=== PATIENT | male | born 1945 | race Caucasian/White ===

== ENCOUNTER 2016-07-29 09:44 | Inpatient (IN) ==
--- NOTE | 2016-07-28 20:49 | Discharge Summary ---
<Patricia Harkins - Last Filed: 07/28/16 21:26> Date of Encounter: 07/28/16 - Discharge Diagnosis (1) Arthritis of knee, left Priority: Primary Status: Acute (2) HTN (hypertension) Priority: Secondary Status: Acute Qualifiers: Hypertension type: essential hypertension Qualified Code(s): I10 - Essential (primary) hypertension (3) DMII (diabetes mellitus, type 2) Priority: Secondary Status: Chronic Qualifiers: Diabetes mellitus complication status: with unspecified complications Diabetes mellitus jail insulin use: unspecified jail insulin use status Qualified Code(s): E11.8 - Type 2 diabetes mellitus with unspecified complications - Discharge Medications Home Medications: Aspirin Enteric Coated [Aspirin EC] 325 mg PO DAILY #21 tablet.dr 07/28/16 [Rx] OxyCODONE Immed Rel [Roxicodone 5 MG] 5 - 10 mg PO Q6HR PRN #40 tablet 07/28/16 [Rx] Albuterol Sulfate [Ventolin Hfa] 2 puff IH Q4H PRN 07/29/16 [History] Atorvastatin [Lipitor] 40 mg PO HS 07/29/16 [History] Budesonide/Formoterol 160/4.5 [Symbicort 160/4.5] 2 puff IH BIDR 07/29/16 [ History] Cholecalciferol (D-3) [Vitamin D] 1,000 unit PO DAILY 07/29/16 [History] Diclofenac Sodium [Voltaren] 75 mg PO DAILY 07/29/16 [History] Duloxetine HCl [Cymbalta] 60 mg PO DAILY 07/29/16 [History] Dutasteride [Avodart] 0.5 mg PO DAILY 07/29/16 [History] Fish Oil/Dha/Epa [Fish Oil 1,200 mg Fish Oil] 1 each PO DAILY 07/29/16 [History] Gabapentin [Neurontin] 600 mg PO BID 07/29/16 [History] Jacy Root 550 mg PO DAILY 07/29/16 [History] Glucosamine HCl 1,500 mg PO DAILY 07/29/16 [History] Lisinopril/Hydrochlorothiazide [Lisinopril-Hctz 20-25 mg Tab] 1 tab PO DAILY 11/09 [History] Loratadine [Claritin] 10 mg PO DAILY 07/29/16 [History] Metformin HCl [Glucophage] 1,000 mg PO BID 07/29/16 [History] Montelukast [Singulair] 10 mg PO HS 07/29/16 [History] Multivitamin [Multi-Day Vitamins] 1 each PO DAILY 07/29/16 [History] Omeprazole [PriLOSEC] 40 mg PO DAILY 07/29/16 [History] Turmeric Root Extract [Turmeric] 500 mg PO DAILY 07/29/16 [History] Zinc [Zinc Chelated] 50 mg PO DAILY 07/29/16 [History] Allergies/Adverse Reactions: Allergies No Known Allergies Allergy (Verified 07/29/16 11:09) Primary care physician: Sue Nagel - Patient Status Disposition: Home, Self-Care Condition: Good - Discharge Instructions Follow Up With: Jt Crow MD [Partnered Physician] - 08/27/16 9:20 am Patricia Harkins PAC [Physician Steam Generating Powerplant Mechanic] - 08/08/16 9:30 am Patricia Melendrez DO [Primary Care Provider] - - Hospital Course Hospital course: Mr. Meredith is a 70 year old male - Time Spent with Patient Total time spent providing and/or coordinating discharge services: <tJ Crow - Last Filed: 07/31/16 06:42> Date of Encounter: 07/31/16 Time of Encounter: 06:42 - Discharge Diagnosis (1) Obesity (BMI 30.0-34.9) Priority: Secondary Status: Chronic (2) Arthritis of knee, left Priority: Primary Status: Acute (3) HTN (hypertension) Priority: Secondary Status: Acute Qualifiers: Hypertension type: essential hypertension Qualified Code(s): I10 - Essential (primary) hypertension (4) DMII (diabetes mellitus, type 2) Priority: Secondary Status: Chronic Qualifiers: Diabetes mellitus complication status: with unspecified complications Diabetes mellitus jail insulin use: unspecified community recreation programmer insulin use status Qualified Code(s): E11.8 - Type 2 diabetes mellitus with unspecified complications - Patient Status Functional capacity at discharge: uses cane/walker Overall status at discharge: patient is progressing back to baseline - Hospital Course Hospital course: Mr. Meredith is a 70 year old male The patient had an uneventful postoperative course. They received antibiotics and physical therapy and were discharged in stable condition. There will follow -up in the office in 2 weeks. Aspirin DVT prophylaxis - Time Spent with Patient Total time spent providing and/or coordinating discharge services:
--- NOTE | 2016-07-29 09:55 | History & Physical Report ---
Date of Encounter: 07/29/16 Time of Encounter: 09:55 24 Hour HP Update - Instructions Instructions: If the History and Physical is less than 30 days old and was completed prior to A.M. admission and or procedure and has NOT been updated on calendar day of procedure please complete this update prior to performing procedure. - Update Patient reports changes in Medical Condition: No Changes in assessment/condition: No Changes in Medication: No Preop tests/diagnostics Reviewed: Yes Surgery Remains Indicated: Yes Consent for Planned Operative Procedure(s) Verified: Yes - Pre-Operative Checklist Preoperative Checklist Indicated: No Prophylactic Antibiotic Ordered: Yes Is VTE Prophylaxis Indicated?: Yes
[2016-07-29] MEDS ORDERED: CeFAZolin Pre 3,000 MG/100 ML 3,000 MG/100 ML BAG IVPB ONE (10:01)
[2016-07-29] MEDS ORDERED: Ringers Solution, Lactated 1,000 ML IVC SCH ×2 (10:15→14:26)
[2016-07-29] MEDS ORDERED: CeFAZolin Pre 2,000 MG/100 ML 2,000 MG/100 ML BAG IVPB ONE (10:19)
[2016-07-29] MEDS ORDERED: *HR* HYDROmorphone (PF) 1 MG/ML SYRINGE IVP PRN (10:25)
[2016-07-29] MEDS ORDERED: *HR* Labetalol 100 MG/20 ML MDV IVP PRN (10:25)
[2016-07-29] MEDS ORDERED: Ondansetron 4 MG/2 ML VIAL IVP ONE (10:25)
[2016-07-29] MEDS ORDERED: *HR* Midazolam HCl 2 MG/2 ML VIAL ONE (10:28)
[2016-07-29] MEDS ORDERED: *HR* Propofol 200 MG/20 ML VIAL IVP ONE (10:28)
[2016-07-29] MEDS ORDERED: *HR* FentaNYL (PF) 100 MCG/2 ML VIAL ONE (10:28)
[2016-07-29] MEDS ORDERED: Lidocaine -MPF 2% 2 ML VIAL ONE (10:33)
[2016-07-29] MEDS ORDERED: Dexamethasone 4 MG/ML VIAL ONE (10:34)
[2016-07-29] MEDS ORDERED: Ondansetron 4 MG/2 ML VIAL ONE (10:34)
[2016-07-29] MEDS ORDERED: Famotidine 20 MG/2 ML VIAL IVP ONE (10:35)
--- NOTE | 2016-07-29 10:41 | Anesthesia Evaluation PreOp ---
Date of Encounter: 07/29/16 Time of Encounter: 10:40 - Past History Planned Operation: Left TKA Cardiac History: HTN, Hyperlipidemia Pulmonary History: Asthma ENGINEER BOOSTER AND EXHAUSTER History: Denies Any Significant HX Other Medical History: Diabetes Type II (Accu check 121) Anesthesia History: No Prior Anesthetic Complications Alcohol Use: none Drug use: none Medications and Allergies Atorvastatin Calcium [Lipitor] 20 mg PO 04/28/16 [History] Budesonide/Formoterol 160/4.5 [Symbicort 160/4.5] 1 puff IH 04/28/16 [History] Cefixime [Suprax] 400 mg PO 04/28/16 [History] Diclofenac Sodium [Voltaren] 04/28/16 [History] Duloxetine [Cymbalta] 60 mg PO DAILY 04/28/16 [History] Dutasteride [Avodart] 0.5 mg PO 04/28/16 [History] Gabapentin Enacarbil 04/28/16 [History] Gabapentin [Neurontin] 600 mg PO 04/28/16 [History] Lisinopril/Hydrochlorothiazide [Zestoretic 10-12.5 mg Tablet] 1 each PO [History] Loratadine [Allergy Relief] 04/28/16 [History] Loratadine [Allergy Relief] 10 mg PO 04/28/16 [History] Metformin 04/28/16 [History] Metformin [Glucophage] 04/28/16 [History] Montelukast Sodium [Singulair] 5 mg PO 04/28/16 [History] Omeprazole [Omeprazole] 04/28/16 [History] Aspirin Enteric Coated [Aspirin EC] 325 mg PO DAILY #21 tablet. 07/28/16 [Rx] OxyCODONE Immed Rel [Roxicodone 5 MG] 5 - 10 mg PO Q6HR PRN #40 tablet 07/28/16 [Rx] Allergies No Known Allergies Allergy (Verified 04/28/16 19:38) - Meds/Allergy Pre-op Review Medications Reviewed: Yes Allergies Reviewed: Yes Beta Blockers on Current Med List: No Anesthesia Results - Labs Laboratory Tests 07/16/16 07/16/16 11:26 11:26 Hgb 14.6 Hct 43.9 Plt Count 342 Sodium 136 Potassium 3.7 BUN 22 Creatinine 0.90 - Imaging EKG: report reviewed (SR nonspecific T wave changes) Anesthesia Exam O2 Sat Height 1.75 m Height 1.75 m Height 1.75 m Weight 99.79 kg Weight 99.79 kg Weight 99.79 kg O2 Sat by Pulse Oximetry 93 O2 Sat by Pulse Oximetry 93 Vital Signs Temp Pulse Resp BP Pulse Ox 99.1 F 72 18 148/84 93 L 07/29/16 10:12 07/29/16 10:12 07/29/16 10:12 07/29/16 10:12 07/29/16 10:12 Height: 5'9 Weight: 220 lbs NPO (# of Hours): MN Pain Scale: 0 - HEENT Pupil (Motor): Pupils equal, EOMI Mallampati: II Teeth: Normal Oral Opening: Greater than 3 - ENGINEER BOOSTER AND EXHAUSTER LOC: Oriented ENGINEER BOOSTER AND EXHAUSTER Motor: Normal RUE, Normal LUE, Normal RLE, Normal LLE, Normal Face ENGINEER BOOSTER AND EXHAUSTER Sensory: Normal: RUE, LUE, RLE, LLE, Face - Cardiac Rhythm: Regular Murmur: None JVD: No Carotid Bruit: No - Pulmonary Breath Sounds: bilateral Clear Respiratory Effort: Symmetrical Anesthesia Assess/Plan ASA Score: 3 (HTN DM Asthma) Modified Bonnie Scale for Level of Consciousness: Cooperative, oriented, and tranquil Anesthetic Plan: General, Regional Monitoring Plan: Standard Monitors Recovery Plan: PACU (Discussed GA and RA, agrees to proceed)
[2016-07-29] MEDS ORDERED: Tetracaine/PF 20 MG/2 ML AMPUL SPINA ONE (11:27)
[2016-07-29] MEDS ORDERED: ROPIVACAINE HCL/PF 0.5% 30 ML VIAL ONE (11:27)
[2016-07-29] MEDS ORDERED: Bupivacaine/Clonidine Syringe 1 EACH SYRINGE ONE (11:27)
--- NOTE | 2016-07-29 12:05 | Anesthesia Procedures ---
Date of Encounter: 07/29/16 Time of Encounter: 11:50 Procedures: Anesthesia - Nerve Block Procedure Date: 07/29/16 Time: 11:50 Checklist: Correct Patient Identifier, Correct procedure, History checked Correct side: Left Blood Thinner: No Monitor Applied: EKG, BP, Pulse Oximetry Supplemental Oxygen via Nasal Cannula (L/min): 2 Sedation: Versed (mg): 2 Indication: Post Op Analgesia Pre-op Neuro Deficits: No Block Type: Femoral, Other (IPACK) Catheter placed: No Sterile Technique: Yes Ultrasound used: Yes Anatomy identified: Yes Visual spread of Local: Yes Neuro Stimulation: No Nerve Stimulator Range: 0.2 - 0.4 mA Blood on Needle Aspiration: No Smooth Injection of Local: Yes Pain with Injection of Local: No Prep: Chlorhexadine Needle: 22 x 50 mm Stimuplex Local: 0.25% Bupivicaine w/Clonidine 20 mcg/cc (40 cc given), Ropivacaine (30 cc given) Number of Attempts: 1 Complications: None/effective block Vitals: VSS
--- NOTE | 2016-07-29 12:57 | Orthopedic Operative Note ---
Date of procedure: 07/29/16 Pre-op diagnosis: Left knee arthritis Post-op diagnosis: same Procedure: Procedure: Left Total knee replacement Estimated blood loss: 200 cc Hardware: Arthrex Femur: 7 Tibia: 6 PS insert: 10 Patella: 40 Exam Under anesthesia: Varus alignment loss. Loss of full 5 degrees Procedural Notes: Grade 4 arthritic changes medial compartment patellofemoral joint. Operative procedure: The patient was brought to the operating room and placed on the operating room table. After general anesthesia was administered the operative knee was examined. Findings were noted in the exam under anesthesia. The operative extremity was prepped and draped in sterile surgical fashion. The patient received IV antibiotics prior to skin incision. A standard midline incision was made centered over the patella. The incision was made through the skin and subcutaneous tissue. A medial parapatellar tendon approach was performed. Care was taken to preserve tissue along the medial aspect of the patella. And to protect the patella tendon. The deep MCL was released off the medial tibia. The infra patella fat pad was excised. Knee was brought into flexion. Patient noted to have grade 4 arthritic changes medial compartment patellofemoral joint. The entry hole was made for the intramedullary femoral guide. The guide was seated in 6 degrees of valgus. Anterior cut was made followed by the distal cut. The ACL the PCL the medial and the lateral menisci were excised. The tibia was subluxed forward. The entry hole was made for the intramedullary tibial guide. Guide was seated to resect 2 mm off the more abnormal side. The knee was brought into flexion the distal femur was sized to a 7. The femoral guide was seated, the anterior cut was made followed by the posterior condylar cut, followed by the chamfer cuts. The finishing guide was seated the box cut was made and the lug holes were drilled. The tibia was sized to a 6, the tibial tray was seated and prepared with the large drill followed by the fin cutter. Trial reduction revealed full extension no varus valgus instability with the appropriate 10 PS Sonia. The patella was everted and cut was made at the level of the insertion of the quadriceps and patella tendon. The patella was sized 40 the guide was seated and the lug holes are drilled. Trial reduction revealed excellent patella tracking. All trial components were removed all bony surfaces were irrigated. The tibia was cemented first followed by the femur. The 10 PS Sonia was seated and the knee was brought into full extension. The patella was cemented and held in place with the patellar holding clamp. After the cement had hardened, the knee sat for 2 minutes with a Betadine saline solution. The knee was then irrigated out with 2 L of pulse irrigation. The extensor mechanism was closed with #2 FiberWire suture and #2 PDS suture. The subcutaneous tissue was then irrigated and closed deep with #1 PDS suture superficially with 0 PDS suture and skin was closed with skin eric. The patient was then placed in a sterile dressing and a postoperative brace extubated and transferred to recovery room in stable condition. Anesthesia: GETA Surgeon: Jt Crow Condition: stable Disposition: PACU
[2016-07-29] MEDS ORDERED: *HR* Labetalol 100 MG/20 ML MDV ONE (13:25)
[2016-07-29 13:59] LABS: Hematocrit 38.1 % (37.5-50.1); Hemoglobin 12.6 g/dL (12.9-16.9)
--- NOTE | 2016-07-29 14:13 | Anesthesia Evaluation Post Op ---
Date of Encounter: 07/29/16 Time of Encounter: 14:15 - Vital Signs Vital Signs: Vital Signs/O2 Sat/Glucose, Most Current Temp Pulse Resp BP Pulse Ox 07/29/16 14:03 97.5 F L 57 15 138/74 93 L 07/29/16 13:53 97.4 F L 59 14 127/70 92 L 07/29/16 13:43 58 14 129/70 92 L 07/29/16 13:33 54 14 144/78 94 L 07/29/16 13:23 97.2 F L 65 14 172/92 94 L 07/29/16 12:11 56 16 142/88 98 07/29/16 11:59 61 138/79 97 07/29/16 11:30 64 132/72 98 - Lungs Lungs: Clear Ascult./Percussion - Airway Airway: Non-obstructed - Cardiovascular Regular Rate - Mental Status Mental Status: Alert & Oriented, Answers Appropriately - Pain Pain Scale: 0 - Nausea Vomiting Nausea Vomiting: Not Present - Hydration Hydration: NPO - Discharge PostOp Status: Transfer Patient to floor
[2016-07-29] MEDS ORDERED: Ondansetron 4 MG/2 ML VIAL IVP PRN (14:26)
[2016-07-29] MEDS ORDERED: *HR* Dextrose 50 % in Water (Syg) 50 ML SYRINGE IVP PRN (14:26)
[2016-07-29] MEDS ORDERED: Sennosides 8.6 MG TABLET PO PRN (14:26)
[2016-07-29] MEDS ORDERED: MOM Conc 10 ML UD.LIQ PO PRN (14:26)
[2016-07-29] MEDS ORDERED: D5% in Water 1,000 ML IV PRN (14:26)
[2016-07-29] MEDS ORDERED: Acetaminophen 325 MG TABLET PO PRN (14:26)
[2016-07-29] MEDS ORDERED: Temazepam 15 MG CAPSULE PO PRN (14:26)
[2016-07-29] MEDS ORDERED: Dextrose Gel 15 GM PO PRN ×2 (14:26)
[2016-07-29] MEDS ORDERED: Naloxone 0.4 MG/ML INJ IVP PRN (14:26)
[2016-07-29] MEDS ORDERED: *HR* OxyCODONE Immed Rel 5 MG TABLET PO PRN (14:26)
[2016-07-29] MEDS: *HR* OxyCODONE Immed Rel 5 MG TABLET PO PRN ×2 (15:30→20:55)
[2016-07-29] MEDS: *HR* Enoxaparin 30 MG/0.3 ML SYRINGE SQ SCH (17:11)
[2016-07-29] MEDS: ceFAZolin 2,000 MG in D5% in Water 100 ML IVPB SCH (17:11)
[2016-07-29] MEDS: Insulin LISPRO 300 UNITS/3 ML VIAL SQ SCH (17:11)
[2016-07-29] MEDS ORDERED: *HR* Enoxaparin 30 MG/0.3 ML SYRINGE SQ SCH (18:00)
[2016-07-29] MEDS: *HR* HYDROmorphone (PF) 1 MG/ML SYRINGE IVP PRN (18:40)
[2016-07-29] MEDS: *HR* Metformin 500 MG TABLET PO SCH (20:50)
[2016-07-29] MEDS: Gabapentin 300 MG CAPSULE PO SCH (20:50)
[2016-07-29] MEDS: Budesonide/Formoterol 160/4.5 MDI IH SCH (21:38)
[2016-07-30] MEDS: ceFAZolin 2,000 MG in D5% in Water 100 ML IVPB SCH (02:49)
[2016-07-30] MEDS: *HR* OxyCODONE Immed Rel 5 MG TABLET PO PRN ×4 (02:51→21:24)
[2016-07-30] MEDS: *HR* HYDROmorphone (PF) 1 MG/ML SYRINGE IVP PRN (05:13)
[2016-07-30] MEDS: *HR* Enoxaparin 30 MG/0.3 ML SYRINGE SQ SCH ×2 (05:50→17:36)
--- NOTE | 2016-07-30 06:33 | Orthopedics Progress Note ---
Date of Encounter: 07/30/16 Time of Encounter: 06:33 - Assessment and Plan (1) Obesity (BMI 30.0-34.9) Current Visit: Yes Status: Chronic (2) Arthritis of knee, left Current Visit: Yes Status: Acute (3) HTN (hypertension) Current Visit: Yes Status: Acute Qualifiers: Hypertension type: essential hypertension Qualified Code(s): I10 - Essential (primary) hypertension (4) DMII (diabetes mellitus, type 2) Current Visit: Yes Status: Chronic Qualifiers: Diabetes mellitus complication status: with unspecified complications Diabetes mellitus detention insulin use: unspecified terminal operations manager insulin use status Qualified Code(s): E11.8 - Type 2 diabetes mellitus with unspecified complications Subjective Interval history: Patient was seen this morning doing well without complaints. Afebrile vital signs stable. Operative extremity: Neurovascularly intact Dressing clean dry and intact Calves nontender Assessment and plan: Continue with postoperative care Hematocrit 38 Objective Vital signs: Vital Signs Temp Pulse Resp BP Pulse Ox 07/30/16 04:00 97.6 F 63 16 133/75 95 07/30/16 00:00 97.5 F L 60 16 141/73 94 L 07/29/16 21:38 18 97 07/29/16 20:00 97.6 F 60 16 145/70 94 L 07/29/16 17:22 97.5 F L 58 16 147/72 93 L 07/29/16 16:33 97.5 F L 59 16 129/71 94 L 07/29/16 15:27 97.2 F L 60 16 144/81 93 L 07/29/16 14:45 97.5 F L 58 16 142/75 93 L 07/29/16 14:20 97.8 F 60 16 147/71 93 L 07/29/16 14:03 97.5 F L 57 15 138/74 93 L 07/29/16 13:53 97.4 F L 59 14 127/70 92 L 07/29/16 13:43 58 14 129/70 92 L 07/29/16 13:33 54 14 144/78 94 L 07/29/16 13:23 97.2 F L 65 14 172/92 94 L 07/29/16 12:11 56 16 142/88 98 07/29/16 11:59 61 138/79 97 07/29/16 11:30 64 132/72 98 07/29/16 10:13 99.1 F 72 18 148/84 93 L 07/29/16 10:12 99.1 F 72 18 148/84 93 L Intake and Output 07/29/16 07/29/16 07/30/16 15:59 23:59 07:59 Intake Total 100 / 100 350 / 350 Output Total 200 / 200 400 / 400 600 / 600 Balance -100 / -100 -50 / -50 -600 / -600 Intake: IV Fluids 100 / 100 100 / 100 Ancef 2,000 MG In 100 / 100 Dextrose 5% 100 ML @ 200 mls/hr IVPB Q8H ZACHARY Rx#: [id number] Ancef Premix 2,000 MG/100 100 / 100 ML 2,000 mg In 100 ml @ 200 mls/hr IVPB PREOP ONE Rx#:[id number] Oral 0 / 0 250 / 250 Output: Urine 400 / 400 600 / 600 Estimated Blood Loss 200 / 200 Other: # Voids 1 Weight 99.79 kg Blood Glucose* 137 225 - Labs CBC & BMP: 07/29/16 13:38 Labs: Abnormal lab results Hgb 12.6 g/dL (12.9-16.9) L 07/29/16 13:38 POC Glucose 148 (58-89) H 07/29/16 16:54 - VTE Documentation of Mechanical Device: Venous foot pump, device Consult Discharge Plan - Plan Referrals: Patricia Melendrez DO [Partnered Physician] -
[2016-07-30] MEDS: Insulin LISPRO 300 UNITS/3 ML VIAL SQ SCH ×3 (07:49→17:36)
[2016-07-30 09:05] LABS: Hematocrit 33.5 % (37.5-50.1)
[2016-07-30 09:16] LABS: BUN/Creatinine Ratio 21 (6-26); Blood Urea Nitrogen 16 mg/dL (8-26); Calcium 7.9 mg/dL (8.6-10.8); Carbon Dioxide 26 mEq/L (19-29); Chloride 101 mEq/L (98-109); Glucose 141 mg/dL (70-99); Osmolality,Calculated 290 (280-300); Potassium 3.8 mEq/L (3.5-4.5); Sodium 138 mEq/L (136-145); eGFR For African Americans > 60 (> 60); eGFR For Non-African Americans > 60 (> 60)
[2016-07-30] MEDS: Gabapentin 300 MG CAPSULE PO SCH ×2 (09:35→21:25)
[2016-07-30] MEDS: Diclofenac Sodium 75 MG TABLET PO SCH (09:35)
[2016-07-30] MEDS: Multivit/Ca/Min/Fe/FA 1 TAB TABLET PO SCH (09:35)
[2016-07-30] MEDS: GLUCOSAMINE HCL 1500 MG PO SCH (09:36)
[2016-07-30] MEDS: Cholecalciferol (D-3) 1,000 UNIT TABLET PO SCH (09:36)
[2016-07-30] MEDS: (Turmeric Root Extract [Turmeric] 500 MG) PO SCH (09:36)
[2016-07-30] MEDS: Finasteride 5 MG TABLET PO SCH (09:36)
[2016-07-30] MEDS: [UNRECOGNIZED DRUG - OTHER] PO SCH (09:36)
[2016-07-30] MEDS: (Zinc [Zinc Chelated] 50 MG) PO SCH (09:37)
[2016-07-30] MEDS: (Fish Oil/Dha/Epa [Fish Oil 1,200 Mg Fish Oil] 1 EACH PO SCH (09:37)
[2016-07-30] MEDS: GINGER ROOT 550 MG PO SCH (09:37)
[2016-07-30] MEDS: Loratadine 10 MG TABLET PO SCH (09:38)
[2016-07-30] MEDS: Budesonide/Formoterol 160/4.5 MDI IH SCH ×2 (09:55→21:01)
[2016-07-30] MEDS: *HR* Metformin 500 MG TABLET PO SCH ×2 (10:14→21:25)
[2016-07-31 06:09] LABS: Hematocrit 32.9 % (37.5-50.1); Hemoglobin 11.1 g/dL (12.9-16.9)
[2016-07-31] MEDS: *HR* Enoxaparin 30 MG/0.3 ML SYRINGE SQ SCH (06:13)
[2016-07-31] MEDS: *HR* OxyCODONE Immed Rel 5 MG TABLET PO PRN ×2 (06:19→10:12)
[2016-07-31 06:26] LABS: BUN/Creatinine Ratio 21 (6-26); Blood Urea Nitrogen 17 mg/dL (8-26); Calcium 8.2 mg/dL (8.6-10.8); Carbon Dioxide 28 mEq/L (19-29); Chloride 100 mEq/L (98-109); Glucose 171 mg/dL (70-99); Osmolality,Calculated 290 (280-300); Potassium 3.8 mEq/L (3.5-4.5); Sodium 137 mEq/L (136-145); eGFR For African Americans > 60 (> 60); eGFR For Non-African Americans > 60 (> 60)
--- NOTE | 2016-07-31 06:43 | Orthopedics Progress Note ---
Date of Encounter: 07/31/16 Time of Encounter: 06:43 - Assessment and Plan (1) Obesity (BMI 30.0-34.9) Current Visit: Yes Status: Chronic (2) Arthritis of knee, left Current Visit: Yes Status: Acute (3) HTN (hypertension) Current Visit: Yes Status: Acute Qualifiers: Hypertension type: essential hypertension Qualified Code(s): I10 - Essential (primary) hypertension (4) DMII (diabetes mellitus, type 2) Current Visit: Yes Status: Chronic Qualifiers: Diabetes mellitus complication status: with unspecified complications Diabetes mellitus care home insulin use: unspecified intermodal dispatcher insulin use status Qualified Code(s): E11.8 - Type 2 diabetes mellitus with unspecified complications Subjective Interval history: Patient was seen this morning doing well without complaints. Afebrile vital signs stable. Operative extremity: Neurovascularly intact Dressing clean dry and intact Calves nontender Assessment and plan: Continue with postoperative care Hemoglobin 11.1 discharged today Objective Vital signs: Vital Signs Temp Pulse Resp BP Pulse Ox 07/31/16 00:00 99.2 F 78 16 145/62 95 07/30/16 21:34 95 07/30/16 21:02 16 94 L 07/30/16 19:54 99.2 F 77 16 136/62 97 07/30/16 14:59 98.7 F 74 16 128/72 96 07/30/16 11:18 98.4 F 73 16 126/65 93 L 07/30/16 09:55 16 85 L 07/30/16 09:00 93 L 07/30/16 07:18 98.1 F 71 14 157/77 94 L Intake and Output 07/30/16 07/30/16 07/31/16 15:59 23:59 07:59 Intake Total 480 / 480 710 / 710 300 / 300 Output Total 300 / 300 300 / 300 450 / 450 Balance 180 / 180 410 / 410 -150 / -150 Intake: Oral 480 / 480 710 / 710 300 / 300 Output: Urine 300 / 300 300 / 300 450 / 450 Other: Meal Lunch Dinner Percent of Meal Consumed 100% 100% Blood Glucose* 176 206 - Labs CBC & BMP: 07/31/16 05:55 07/31/16 05:55 Labs: Abnormal lab results Hgb 11.1 g/dL (12.9-16.9) L 07/31/16 05:55 Hct 32.9 % (37.5-50.1) L 07/31/16 05:55 Glucose 171 mg/dL (70-99) H 07/31/16 05:55 POC Glucose 142 (58-89) H 07/30/16 19:30 Calcium 8.2 mg/dL (8.6-10.8) L 07/31/16 05:55 - VTE Documentation of Mechanical Device: Venous foot pump, device Consult Discharge Plan - Plan Referrals: Jt Crow MD [Partnered Physician] - 08/27/16 9:20 am Patricia Harkins, PAC [Physician Bushing Press Operator] - 08/08/16 9:30 am Patricia Melendrez DO [Primary Care Provider] -
[2016-07-31 07:07] VITALS: BP 129/68
[2016-07-31] MEDS: Budesonide/Formoterol 160/4.5 MDI IH SCH (08:05)
[2016-07-31] MEDS: [UNRECOGNIZED DRUG - OTHER] PO SCH (09:01)
[2016-07-31] MEDS: (Fish Oil/Dha/Epa [Fish Oil 1,200 Mg Fish Oil] 1 EACH PO SCH (09:01)
[2016-07-31] MEDS: (Turmeric Root Extract [Turmeric] 500 MG) PO SCH (09:01)
[2016-07-31] MEDS: (Zinc [Zinc Chelated] 50 MG) PO SCH (09:01)
[2016-07-31] MEDS: GLUCOSAMINE HCL 1500 MG PO SCH (09:01)
[2016-07-31] MEDS: GINGER ROOT 550 MG PO SCH (09:01)
[2016-07-31] MEDS: Insulin LISPRO 300 UNITS/3 ML VIAL SQ SCH (09:04)
[2016-07-31] MEDS: Finasteride 5 MG TABLET PO SCH (09:06)
[2016-07-31] MEDS: Multivit/Ca/Min/Fe/FA 1 TAB TABLET PO SCH (09:07)
[2016-07-31] MEDS: Loratadine 10 MG TABLET PO SCH (09:07)
[2016-07-31] MEDS: Cholecalciferol (D-3) 1,000 UNIT TABLET PO SCH (09:07)
[2016-07-31] MEDS: *HR* Metformin 500 MG TABLET PO SCH (09:07)
[2016-07-31] MEDS: Gabapentin 300 MG CAPSULE PO SCH (09:07)
[2016-07-31] MEDS: Diclofenac Sodium 75 MG TABLET PO SCH (09:07)
== END 2016-07-31 11:35 | disposition home or self-care (01) | DRG 470 ==
LOC: SAMDAY 09:44 → 3NENU 14:47
PROVIDERS: ADMIT Orthopaedic Surgery; ATTEND Orthopaedic Surgery

== ENCOUNTER 2017-08-04 14:29 | Inpatient (IN) ==
--- NOTE | 2017-08-03 21:30 | Discharge Summary ---
<ShahanaKenyattaPatricia L - Last Filed: 08/03/17 21:28> Date of Encounter: 08/03/17 - Discharge Diagnosis (1) Arthritis of knee, right Priority: Primary Status: Acute (2) Status post total knee replacement, right Priority: Primary Status: Acute (3) HTN (hypertension) Priority: Secondary Status: Chronic Qualifiers: Hypertension type: essential hypertension (4) DMII (diabetes mellitus, type 2) Priority: Secondary Status: Chronic Qualifiers: Diabetes mellitus mcc insulin use: unspecified long goods drier insulin use status Diabetes mellitus complication status: with unspecified complications Qualified Code(s): E11.8 - Type 2 diabetes mellitus with unspecified complications (5) Obesity (BMI 30.0-34.9) Priority: Secondary Status: Chronic - Hospital Course Hospital course: Mr. Meredith is a 71 year old male - Time Spent with Patient Total time spent providing and/or coordinating discharge services: - Discharge Medications Home Medications: Albuterol Sulfate [Ventolin Hfa] 2 puff IH Q4H PRN 07/29/16 [History] Atorvastatin [Lipitor] 40 mg PO HS 07/29/16 [History] Duloxetine HCl [Cymbalta] 60 mg PO DAILY 07/29/16 [History] Dutasteride [Avodart] 0.5 mg PO DAILY 07/29/16 [History] Gabapentin [Neurontin] 600 mg PO BID 07/29/16 [History] Lisinopril/Hydrochlorothiazide [Lisinopril-Hctz 20-25 mg Tab] 1 tab PO DAILY 11/09 [History] Loratadine [Claritin] 10 mg PO DAILY 07/29/16 [History] Metformin HCl [Glucophage] 1,000 mg PO BID 07/29/16 [History] Montelukast [Singulair] 10 mg PO HS 07/29/16 [History] Omeprazole [PriLOSEC] 40 mg PO DAILY 07/29/16 [History] Aspirin Enteric Coated [Aspirin EC] 325 mg PO BID #20 tablet.dr 08/03/17 [Rx] OxyCODONE Immed Rel [Roxicodone 5 MG] 5 mg PO Q6HR PRN 7 Days #28 tablet [Rx] Allergies/Adverse Reactions: 3 Allergy/AdvReac Type Severity Reaction Status Date / Time No Known Allergies Allergy Verified 08/04/17 17:02 Primary care physician: Sue Nagel - Patient Status Disposition: Home, Self-Care Condition: Good - Discharge Instructions Follow Up With: Patricia Melendrez DO [Primary Care Provider] - <Jt Crow - Last Filed: 08/05/17 06:25> Orders not resulted at time of discharge: Pending orders 08/04/17 00:01 XR knee RT limited 1-2V [XR] Routine H/H [Hemoglobin and Hematocrit] [HEME] Routine Date of Encounter: 08/05/17 Time of Encounter: 06:24 - Discharge Diagnosis (1) HTN (hypertension) Priority: Secondary Status: Chronic Qualifiers: Hypertension type: unspecified Qualified Code(s): I10 - Essential (primary ) hypertension (2) DMII (diabetes mellitus, type 2) Priority: Secondary Status: Chronic Qualifiers: Diabetes mellitus mcc insulin use: unspecified mcc insulin use status Diabetes mellitus complication status: with unspecified complications Qualified Code(s): E11.8 - Type 2 diabetes mellitus with unspecified complications (3) Obesity (BMI 30.0-34.9) Priority: Secondary Status: Chronic (4) Arthritis of knee, right Priority: Primary Status: Chronic (5) Status post total knee replacement, right Priority: Primary Status: Acute - Hospital Course Hospital course: Mr. Meredith is a 71 year old male Status post right total knee replacement discharged today3 The patient had an uneventful postoperative course. They received antibiotics and physical therapy and were discharged in stable condition. There will follow -up in the office in 2 weeks. - Time Spent with Patient Total time spent providing and/or coordinating discharge services: Primary care physician: Sue Nagel Labs on day of discharge: Labs from last 24 hours 08/04/17 15:17 POC Glucose 137 H - Patient Status Functional capacity at discharge: uses cane/walker Overall status at discharge: patient is progressing back to baseline
[2017-08-04] MEDS ORDERED: CeFAZolin Syr 2,000MG/20 ML 2,000 MG/20 ML SYRINGE IVPB ONE (15:09)
[2017-08-04] MEDS ORDERED: Ringers Solution, Lactated 1,000 ML IVC SCH ×2 (15:15→20:48)
[2017-08-04] MEDS ORDERED: Ethanol\\Acetic Acid\\Na Ace\\Ben 1,000 ML IRRIG.SOLN IR ONE (15:29)
--- NOTE | 2017-08-04 16:50 | History & Physical Report ---
Date of Encounter: 08/04/17 Time of Encounter: 16:49 24 Hour HP Update - Instructions Instructions: If the History and Physical is less than 30 days old and was completed prior to A.M. admission and or procedure and has NOT been updated on calendar day of procedure please complete this update prior to performing procedure. - Update Patient reports changes in Medical Condition: No Changes in examination, assessment, or condition: No Changes in Medication: No Preop tests/diagnostics Reviewed: Yes Surgery Remains Indicated: Yes Consent for Planned Operative Procedure(s) Verified: Yes - Pre-Operative Checklist Preoperative Checklist Indicated: No Prophylactic Antibiotic Ordered: Yes Is VTE Prophylaxis Indicated?: Yes
[2017-08-04] MEDS ORDERED: Famotidine 20 MG/2 ML VIAL IVP ONE (17:19)
[2017-08-04] MEDS ORDERED: Pregabalin 75 MG CAPSULE PO ONE (17:19)
[2017-08-04] MEDS ORDERED: *HR* Enoxaparin 30 MG/0.3 ML SYRINGE SQ SCH (18:00)
--- NOTE | 2017-08-04 18:03 | Anesthesia Evaluation PreOp ---
Date of Encounter: 08/04/17 Time of Encounter: 18:00 - Past History Planned Operation: Rt TKA Cardiac History: HTN, Hyperlipidemia Pulmonary History: HEAVEN Dx (CPAP) MANAGER STATE History: Denies Any Significant HX Other Medical History: Diabetes Type II, GERD Anesthesia History: No Prior Anesthetic Complications Alcohol Use: none Drug use: none Medications and Allergies Albuterol Sulfate [Ventolin Hfa] 2 puff IH Q4H PRN 07/29/16 [History] Atorvastatin [Lipitor] 40 mg PO HS 07/29/16 [History] Duloxetine HCl [Cymbalta] 60 mg PO DAILY 07/29/16 [History] Dutasteride [Avodart] 0.5 mg PO DAILY 07/29/16 [History] Gabapentin [Neurontin] 600 mg PO BID 07/29/16 [History] Lisinopril/Hydrochlorothiazide [Lisinopril-Hctz 20-25 mg Tab] 1 tab PO DAILY 11/09 [History] Loratadine [Claritin] 10 mg PO DAILY 07/29/16 [History] Metformin HCl [Glucophage] 1,000 mg PO BID 07/29/16 [History] Montelukast [Singulair] 10 mg PO HS 07/29/16 [History] Omeprazole [PriLOSEC] 40 mg PO DAILY 07/29/16 [History] Aspirin Enteric Coated [Aspirin EC] 325 mg PO BID #20 tablet. 08/03/17 [Rx] OxyCODONE Immed Rel [Roxicodone 5 MG] 5 mg PO Q6HR PRN 7 Days #28 tablet [Rx] 3 Allergy/AdvReac Type Severity Reaction Status Date / Time No Known Allergies Allergy Verified 08/04/17 17:02 - Meds/Allergy Pre-op Review Medications Reviewed: Yes Allergies Reviewed: Yes Beta Blockers on Current Med List: No Anesthesia Results - Labs Laboratory Tests 07/07/17 07/07/17 07/07/17 11:08 11:08 11:08 Hgb 14.1 Hct 44.3 Plt Count 375 PT 10.2 INR 1.0 APTT 30.0 Sodium 139 Potassium 4.2 BUN 30 H Creatinine 0.88 - Imaging EKG: report reviewed (SR) Anesthesia Exam O2 Sat Height 1.78 m Height 1.78 m Weight 98.43 kg Weight 98.43 kg O2 Sat by Pulse Oximetry 94 Vital Signs Temp Pulse Resp BP Pulse Ox 98.9 F 74 18 121/72 94 08/04/17 15:12 08/04/17 15:12 08/04/17 15:12 08/04/17 15:12 08/04/17 15:12 Height: 5'10 Weight: 217 lbs NPO (# of Hours): MN Pain Scale: 0 - HEENT Pupil (Motor): Pupils equal, EOMI Mallampati: II Teeth: Normal Oral Opening: Greater than 3 - MANAGER STATE LOC: Oriented MANAGER STATE Motor: Normal RUE, Normal LUE, Normal RLE, Normal LLE, Normal Face MANAGER STATE Sensory: Normal: RUE, LUE, RLE, LLE, Face - Cardiac Rhythm: Regular Murmur: None JVD: No Carotid Bruit: No - Pulmonary Breath Sounds: bilateral Clear Respiratory Effort: Symmetrical Anesthesia Assess/Plan ASA Score: 3 (HTN DM HEAVEN) Modified Bonnie Scale for Level of Consciousness: Cooperative, oriented, and tranquil Anesthetic Plan: Regional, MAC Monitoring Plan: Standard Monitors Recovery Plan: PACU (Discussed SAB with Adductor Canal Block, possible GA, agrees to proceed)
[2017-08-04] MEDS ORDERED: ROPIVACAINE HCL/PF 0.5% 30 ML VIAL ONE ×2 (18:08→18:22)
[2017-08-04] MEDS ORDERED: *HR* Midazolam HCl 2 MG/2 ML VIAL ONE (18:09)
[2017-08-04] MEDS ORDERED: *HR* FentaNYL (PF) 100 MCG/2 ML VIAL ONE (18:10)
[2017-08-04] MEDS ORDERED: Dexamethasone 4 MG/ML VIAL ONE ×2 (18:11→18:21)
[2017-08-04] MEDS ORDERED: *HR* Propofol 200 MG/20 ML VIAL IVP ONE (18:19)
[2017-08-04] MEDS ORDERED: Propofol 500 MG/50 ML INFUS..BTL ONE (18:19)
[2017-08-04] MEDS ORDERED: Lidocaine -MPF 2% 2 ML VIAL ONE (18:19)
[2017-08-04] MEDS ORDERED: *HR* OxyCODONE/APAP 5/325 TABLET PO PRN (18:48)
--- NOTE | 2017-08-04 19:00 | Anesthesia Procedures ---
Date of Encounter: 08/04/17 Time of Encounter: 18:00 Procedures: Anesthesia - Epidural/Spinal Patient ID/Chart reviewed: Yes Patient examined: Yes Sedation: Versed (mg): 2 Site Prep: Aseptic Technique Patient position: upright Local Anesthetic: Lidocaine 1% Blood: No CSF: Yes Paresthesia: No Spinal Needle Gauge: 24 Spinal Dose: 1.5cc 0.5% Marcaine isobaric Procedure: Patient sitting, sterile prep midline L3-4 patient tolerated procedure well - Nerve Block Procedure Date: 08/04/17 Pre-op Diagnosis: Rt Knee Arthropathy Surgical Procedure: Rt TKA Checklist: Correct Patient Identifier Correct side: Right Monitor Applied: EKG, BP, Pulse Oximetry Supplemental Oxygen via Nasal Cannula (L/min): 2 Sedation: Versed (mg): 2 Indication: Post Op Analgesia Block Type: Other (Adductor Canal Block) Catheter placed: No Sterile Technique: Yes Ultrasound used: Yes Anatomy identified: Yes Visual spread of Local: Yes Neuro Stimulation: No Blood on Needle Aspiration: No Smooth Injection of Local: Yes Pain with Injection of Local: No Prep: Chlorhexadine Needle: 22 x 50 mm Stimuplex Local: Ropivacaine Volume (cc): 30 Number of Attempts: 1 Vitals: Vital Signs/O2 Sat/Glucose, Most Current Temp Pulse Resp BP Pulse Ox 08/04/17 18:20 77 12 123/82 98 08/04/17 18:05 75 14 134/81 98 08/04/17 15:12 98.9 F 74 18 121/72 94
[2017-08-04] MEDS ORDERED: Naloxone 0.4 MG/ML INJ IVP PRN ×2 (19:02→20:48)
[2017-08-04] MEDS ORDERED: Ondansetron 4 MG/2 ML VIAL IVP PRN ×2 (19:02→20:48)
[2017-08-04] MEDS ORDERED: *HR* PHENYLEPHRINE 1,000 MCG/10 ML SYRINGE IVP ONE (19:07)
--- NOTE | 2017-08-04 19:22 | Orthopedic Operative Note ---
Date of procedure: 08/04/17 Pre-op diagnosis: Right knee arthritis Post-op diagnosis: same Procedure: Procedure: Right Total knee replacement Estimated blood loss: 200 cc Hardware: Metal and polyethylene replacement. Arthrex Femur: 7 Tibia: 6 PS insert: 13 Patella: 40 Exam Under anesthesia: Flexion contracture 15 degrees varus alignment Procedural Notes: Grade 4 arthritic changes all 3 compartments. Operative procedure: The patient was brought to the operating room and placed on the operating room table. After general anesthesia was administered the operative knee was examined. Findings were noted in the exam under anesthesia. The operative extremity was prepped and draped in sterile surgical fashion. The patient received IV antibiotics prior to skin incision. A standard midline incision was made centered over the patella. The incision was made through the skin and subcutaneous tissue. A medial parapatellar tendon approach was performed. Care was taken to preserve tissue along the medial aspect of the patella. And to protect the patella tendon. The deep MCL was released off the medial tibia. The infra patella fat pad was excised. Knee was brought into flexion. Patient noted to have grade 4 arthritic changes all 3 compartments. The entry hole was made for the intramedullary femoral guide. The guide was seated in 6 degrees of valgus. Anterior cut was made followed by the distal cut. The ACL the PCL the medial and the lateral menisci were excised. The tibia was subluxed forward. The entry hole was made for the intramedullary tibial guide. Guide was seated to resect 2 mm off the more abnormal side. The knee was brought into flexion the distal femur was sized to a 7. The femoral guide was seated, the anterior cut was made followed by the posterior condylar cut, followed by the chamfer cuts. The finishing guide was seated the box cut was made and the lug holes were drilled. The tibia was sized to a 6, the tibial tray was seated and prepared with the large drill followed by the fin cutter. Trial reduction revealed full extension no varus valgus instability with the appropriate 13 PS Sonia. The patella was everted and cut was made at the level of the insertion of the quadriceps and patella tendon. The patella was sized to a 40 the guide was seated and the lug holes are drilled. Trial reduction revealed excellent patella tracking. All trial components were removed all bony surfaces were irrigated. The tibia was cemented first followed by the femur. The 13 PS Sonia was seated and the knee was brought into full extension. The patella was cemented and held in place with the patellar holding clamp. After the cement had hardened, the knee sat for 2 minutes with a antibacterial solution. The knee was then irrigated out with 2 L of pulse irrigation. The extensor mechanism was closed with #2 FiberWire suture and #2 PDS suture. The subcutaneous tissue was then irrigated and closed deep with #1 PDS suture superficially with 0 PDS suture and skin was closed with skin eric. The patient was then placed in a sterile dressing and a postoperative brace extubated and transferred to recovery room in stable condition. Anesthesia: spinal Surgeon: Jt Crow Was there an certified anesthesiologist assistant present: Yes [facility] Director: Patricia Harkins Estimated blood loss (cc): 200 Condition: stable Disposition: PACU
--- NOTE | 2017-08-04 20:16 | Anesthesia Evaluation Post Op ---
Date of Encounter: 08/04/17 Time of Encounter: 20:15 - Vital Signs Vital Signs: Vital Signs/O2 Sat, Most Current Temp Pulse Resp BP Pulse Ox 98.1 F 70 16 115/67 94 08/04/17 20:11 08/04/17 20:11 08/04/17 20:11 08/04/17 20:11 08/04/17 20:11 - Lungs Lungs: Clear Ascult./Percussion - Airway Airway: Non-obstructed - Cardiovascular Regular Rate - Mental Status Mental Status: Alert & Oriented, Answers Appropriately - Pain Pain Scale: 0 Pain Scale used: Numeric (1 - 10) - Nausea Vomiting Nausea Vomiting: Not Present - Hydration Hydration: Ice chips - Discharge PostOp Status: Transfer Patient to floor
[2017-08-04 20:43] LABS: Hematocrit 39.6 % (37.5-50.1)
[2017-08-04] MEDS ORDERED: *HR* OxyCODONE Immed Rel 5 MG TABLET PO PRN (20:48)
[2017-08-04] MEDS ORDERED: Dextrose Gel 15 GM/37.5 ML TUBE PO PRN ×2 (20:48)
[2017-08-04] MEDS ORDERED: Sennosides 8.6 MG TABLET PO PRN (20:48)
[2017-08-04] MEDS ORDERED: MOM Conc 10 ML UD.LIQ PO PRN (20:48)
[2017-08-04] MEDS ORDERED: D5% in Water 1,000 ML IVC PRN (20:48)
[2017-08-04] MEDS ORDERED: *HR* Dextrose 50 % in Water (Syg) 50 ML SYRINGE IVP PRN (20:48)
[2017-08-04] MEDS ORDERED: Temazepam 15 MG CAPSULE PO PRN (20:48)
[2017-08-04] MEDS: *HR* Metformin 500 MG TABLET PO SCH (22:01)
[2017-08-04] MEDS: Gabapentin 300 MG CAPSULE PO SCH (22:17)
[2017-08-05] MEDS: CeFAZolin Premix DUPLEX 2,000 MG/50 ML BAG IVPB SCH ×2 (00:07→08:41)
[2017-08-05] MEDS ORDERED: *HR* Enoxaparin 30 MG/0.3 ML SYRINGE SQ SCH (06:00)
--- NOTE | 2017-08-05 06:26 | Orthopedics Progress Note ---
Date of Encounter: 08/05/17 Time of Encounter: 06:25 - Assessment and Plan (1) HTN (hypertension) Current Visit: No Status: Chronic Qualifiers: Hypertension type: unspecified Qualified Code(s): I10 - Essential (primary ) hypertension (2) DMII (diabetes mellitus, type 2) Current Visit: No Status: Chronic Qualifiers: Diabetes mellitus retirement insulin use: unspecified rat exterminator insulin use status Diabetes mellitus complication status: with unspecified complications Qualified Code(s): E11.8 - Type 2 diabetes mellitus with unspecified complications (3) Obesity (BMI 30.0-34.9) Current Visit: No Status: Chronic (4) Arthritis of knee, right Current Visit: No Status: Chronic (5) Status post total knee replacement, right Current Visit: No Status: Acute Subjective Interval history: Patient was seen this morning doing well without complaints. Afebrile vital signs stable. Operative extremity: Neurovascularly intact Dressing clean dry and intact Calves nontender Assessment and plan: Continue with postoperative care Hematocrit 41 discharged today Objective Vital signs: Vital Signs Temp Pulse Resp BP Pulse Ox 08/05/17 03:59 98.6 F 71 16 127/67 95 08/04/17 23:00 97.6 F 66 16 132/76 95 08/04/17 22:00 97.6 F 73 16 120/79 96 08/04/17 21:30 97.6 F 62 14 132/71 95 08/04/17 21:00 97.5 F L 69 16 132/77 94 08/04/17 20:30 97.6 F 64 14 126/69 93 08/04/17 20:21 98.0 F 60 16 120/66 94 08/04/17 20:11 98.1 F 70 16 115/67 94 08/04/17 20:01 97.9 F 70 16 101/64 97 08/04/17 19:51 97.9 F 67 14 99/59 97 08/04/17 18:20 77 12 123/82 98 08/04/17 18:05 75 14 134/81 98 08/04/17 15:12 98.9 F 74 18 121/72 94 Intake and Output 08/04/17 08/04/17 08/05/17 15:59 23:59 07:59 Intake Total 50 / 50 Output Total 200 / 200 350 / 350 Balance -200 / -200 -300 / -300 Intake: IV Fluids 50 / 50 Ancef Premix DUPLEX 2,000 mg In 50 / 50 50 ml @ 100 mls/hr IVPB Q8HR [facility] Rx#:[id number] Oral 0 / 0 Output: Urine 350 / 350 Estimated Blood Loss 200 / 200 Other: Weight 98.43 kg Blood Glucose* 137 201 - Labs CBC & BMP: 08/04/17 20:07 Labs: Abnormal lab results POC Glucose 201 (58-89) H 08/04/17 21:26 - VTE Documentation of Mechanical Device: Venous foot pump, device Consult Discharge Plan - Plan Referrals: Patricia Melendrez, [Primary Care Provider] -
[2017-08-05 06:34] LABS: Hematocrit 40.9 % (37.5-50.1); Hemoglobin 13.4 g/dL (12.9-16.9)
[2017-08-05 06:41] LABS: BUN/Creatinine Ratio 30 (6-26); Blood Urea Nitrogen 26 mg/dL (8-23); Calcium 8.8 mg/dL (8.6-10.3); Carbon Dioxide 24 mEq/L (23-29); Chloride 100 mEq/L (98-107); Glucose 188 mg/dL (70-105); Osmolality,Calculated 290 (280-300); Sodium 135 mEq/L (136-145); eGFR For African Americans > 60 (> 60); eGFR For Non-African Americans > 60 (> 60)
[2017-08-05 07:19] VITALS: BP 130/65
[2017-08-05] MEDS ORDERED: Insulin LISPRO 300 UNITS/3 ML VIAL SQ SCH ×2 (07:30)
[2017-08-05] MEDS: *HR* Metformin 500 MG TABLET PO SCH (08:40)
[2017-08-05] MEDS: Gabapentin 300 MG CAPSULE PO SCH (08:40)
[2017-08-05] MEDS: *HR* OxyCODONE Immed Rel 5 MG TABLET PO PRN ×2 (08:41→10:11)
[2017-08-05] MEDS ORDERED: Lisinopril 20 MG TABLET PO SCH (09:00)
[2017-08-05] MEDS ORDERED: Finasteride 5 MG TABLET PO SCH (09:00)
[2017-08-05] MEDS ORDERED: Loratadine 10 MG TABLET PO SCH (09:00)
[2017-08-05] MEDS ORDERED: hydroCHLOROthiazide 25 MG TABLET PO SCH (09:00)
== END 2017-08-05 10:54 | disposition home or self-care (01) | DRG 470 ==
LOC: SAMDAY 14:29 → 3NENU 20:39
PROVIDERS: ADMIT Orthopaedic Surgery; ATTEND Orthopaedic Surgery

== ENCOUNTER 2017-08-05 20:43 | Observation (INO) ==
[2017-08-05 22:20] LABS: Basophils % 0.2 %; Eosinophils % 0.2 %; Hematocrit 37.3 % (37.5-50.1); Hemoglobin 12.4 g/dL (12.9-16.9); Immature Granulocytes % 0.3 % (0-4); Lymphocytes # 1.2 K/mcL (0.6-4.6); Lymphocytes % 12.6 %; Mean Corpuscular HGB Conc 33.2 g/dL (31.6-35.5); Mean Corpuscular Hemoglobin 27.6 pg (28.0-33.3); Mean Corpuscular Volume 83.1 fL (83.0-100.0); Mean Platelet Volume 9.6 fL (9.4-12.4); Monocytes # 1.2 K/mcL (0.0-1.3); Neutrophils # 7.4 K/mcL (1.6-8.9); Platelet Count 272 K/mcL (140-400); Red Blood Count 4.49 M/mcL (4.19-5.50); Red Cell Distribution Width 13.5 % (11.5-14.5); Segmented Neutrophils % 74.7 %
[2017-08-05 22:25] LABS: INR 1.1; Prothrombin Time 11.9 Seconds (9.4-12.1)
[2017-08-05 22:27] LABS: Activated Partial Thrombo Time 27.2 Seconds (26.0-36.0)
[2017-08-05 22:41] LABS: BUN/Creatinine Ratio 31 (6-26); Blood Urea Nitrogen 31 mg/dL (8-23); Calcium 9.2 mg/dL (8.6-10.3); Carbon Dioxide 25 mEq/L (23-29); Chloride 95 mEq/L (98-107); Glucose 324 mg/dL (70-105); Osmolality,Calculated 291 (280-300); Potassium 3.7 mEq/L (3.5-5.1); Sodium 131 mEq/L (136-145); eGFR For African Americans > 60 (> 60); eGFR For Non-African Americans > 60 (> 60)
[2017-08-05 22:42] LABS: Troponin I < 0.03 ng/mL (< 0.04)
--- NOTE | 2017-08-06 02:20 | Emergency Department Note ---
Disposition Clinical Impression: Near syncope Disposition: Admitted As Inpatient Condition: Good Syncope HPI - General Chief Complaint: ED General Medical Stated Complaint: dizziness, weakness, surgery yesterday Time Seen by Provider: 08/06/17 01:12 Source: patient, family Mode of arrival: EMS Limitations: no limitations Nursing Notes Reviewed: Yes Vital Signs Reviewed: Yes - History of Present Illness HPI Narrative: 71-year-old male with a history of hypertension and diabetes, status post TKR on 08/[address] Crow, he was released from the hospital on 08/05 where he immediately went to rehabilitation to start working on strengthening endurance. states that at rehabilitation patient experienced no pain and he was able to complete all the exercises in the rehabilitation people states that he did great, that he was there for hours. After coming home patient ambulate with his walker through the house without any difficulty back to the bedroom. Eventually he stated he was hungry and had walked back across the house into the kitchen. Later he was walking back to the bedroom when he stated that he felt very weak he was extremely diaphoretic and pale, but he sat on the toilet in the bathroom and was holding onto his walker stating that he laid on the floor because he was going to fall, he stated that is difficult premises become blurry and he felt like he was going to pass out. call for the patient's brother to come help this patient new she would be unable to get him up off the floor if he were to fall, she started to check his blood pressure and noticed that the automated machine stated his systolic was only 64. Patient became even weaker and she described him as "almost a puddle" was able to put a call compresses and eventually wake him up Muscle: Will wash pulse in striking him likely to arouse him. She called EMS. The patient came here to be seen. Patient had a Vicodin at 1603/ and prior to that it had been while he was still in the hospital before being released on 08/05. He takes all medication as prescribed. states he did not complain of pain at all today. Denies fever, chills, shortness of breath, dyspnea, chest pain, palpitations, edema, nausea, vomiting, diarrhea, increased pain. Pt Subjective Complaint: felt faint, almost passed out Onset (ago): hour(s) Number of episodes: 1 Duration: minutes(s) Prodromal Symptoms: none Witnessed: yes - by other (By spouse) Context: during exertion, other (See HPI) Injuries Sustained Associated with Event: none Current Symptoms: none History: none Treatments prior to arrival: none Associated trauma secondary to event: No - Related Data Home Medications Medication Instructions Recorded Confirmed Albuterol Sulfate [Ventolin Hfa] 2 puff IH Q4H PRN 07/29/16 08/05/17 Atorvastatin [Lipitor] 40 mg PO HS 07/29/16 08/05/17 Duloxetine HCl [Cymbalta] 60 mg PO DAILY 07/29/16 08/05/17 Dutasteride [Avodart] 0.5 mg PO DAILY 07/29/16 08/05/17 Gabapentin [Neurontin] 600 mg PO BID 07/29/16 08/05/17 Lisinopril/Hydrochlorothiazide 1 tab PO DAILY 07/29/16 08/05/17 [Lisinopril-Hctz 20-25 mg Tab] Loratadine [Claritin] 10 mg PO DAILY 07/29/16 08/05/17 Metformin HCl [Glucophage] 1,000 mg PO BID 07/29/16 08/05/17 Montelukast [Singulair] 10 mg PO HS 07/29/16 08/05/17 Omeprazole [PriLOSEC] 40 mg PO DAILY 07/29/16 08/05/17 Diclofenac Sodium [Voltaren] 75 mg PO DAILY 08/05/17 08/05/17 Jacy Root [Jacy] 500 mg PO DAILY 08/05/17 08/05/17 Previous Rx's Medication Instructions Recorded Aspirin Enteric Coated [Aspirin EC] 325 mg PO BID #20 tablet. 08/03/17 OxyCODONE Immed Rel [Roxicodone 5 5 mg PO Q6HR PRN 7 Days #28 tablet 08/03/17 MG] Allergies Allergy/AdvReac Type Severity Reaction Status Date / Time No Known Allergies Allergy Verified 08/05/17 21:45 Review of Systems: See HPI All systems ED: reviewed and negative except as stated. Review of Systems: As Per HPI Past Medical History - Past Medical History Attestation: Yes The following information was validated with the patient. Source: obtained from family Medical history: Reports: GERD, hyperlipidemia, hypertension, kidney stones Surgical history: Reports: orthopedic, other (TKR 08/04) Psychiatric history: Reports: no psych history - Social History Smoking Status: Never smoker Smokeless Tobacco Status: No Alcohol use: Reports: none Drug use: Reports: none Physical Exam - General Limitations: no limitations General appearance: alert, in no apparent distress - Head Head exam: atraumatic, normocephalic, normal inspection - Neck Neck exam: Present: normal inspection, full ROM, trachea midline - Chest Chest inspection: Present: normal inspection, symmetric chest wall rise - Respiratory Respiratory exam: Present: normal lung sounds bilaterally - Cardiovascular Cardiovascular exam: Present: regular rate, normal rhythm, normal heart sounds - Expanded Lower Extremity Exam Knee exam: Present: other (Honeycomb dressing to right knee status post TKR . Area is slightly edematous but does not appear to be infected, or septic) Course Course Narrative: 71-year-old male with a history of hypertension and diabetes, status post TKR on 08/[address] Crow, he was released from the hospital on 08/05 where he immediately went to rehabilitation to start working on strengthening endurance. states that at rehabilitation patient experienced no pain and he was able to complete all the exercises in the rehabilitation people states that he did great, that he was there for hours. After coming home patient ambulate with his walker through the house without any difficulty back to the bedroom. Eventually he stated he was hungry and had walked back across the house into the kitchen. Later he was walking back to the bedroom when he stated that he felt very weak he was extremely diaphoretic and pale, but he sat on the toilet in the bathroom and was holding onto his walker stating that he laid on the floor because he was going to fall, he stated that is difficult premises become blurry and he felt like he was going to pass out. call for the patient's brother to come help this patient new she would be unable to get him up off the floor if he were to fall, she started to check his blood pressure and noticed that the automated machine stated his systolic was only 64. Patient became even weaker and she described him as "almost a puddle" was able to put a call compresses and eventually wake him up Muscle: Will wash pulse in striking him likely to arouse him. She called EMS. The patient came here to be seen. Patient had a Vicodin at 1603/13 and prior to that it had been while he was still in the hospital before being released on 08/05. He takes all medication as prescribed. states he did not complain of pain at all today. Denies fever, chills, shortness of breath, dyspnea, chest pain, palpitations, edema, nausea, vomiting, diarrhea, increased pain. Labs relatively benign, other than glucose in the upper 300s, chest x-ray negative. Vital signs stable without tachycardia, tachypnea, hypoxia. Exam revealed a large-sized man that is well-nourished, well-hydrated that is incredibly weak after experiencing a TKR in no overt acute distress TKR site with honeycomb dressing applied, does appear was slight edema but that is to be expected, no signs of infection. Patient's had no other episodes of near- syncope since he has been here. Patient has been on the monitor while he has been here he has not been hypertensive or hypotensive, he has moved up and down and has not had any episodes of dizziness, vertigo, syncope. He has denied all complaints. This patient's first near syncopal episode, is worried about taking her home and a happening again she would be unable to get him up off the floor. I felt this time the best place for him would be to be admitted to the hospital for a syncopal workup. We plan to admit to medicine and will contact the hospitalist. and patient both agreeable. Vital Signs Temperature 99.5 F 08/05/17 21:45 Pulse Rate 83 08/05/17 21:45 Respiratory Rate 16 08/05/17 21:45 Blood Pressure 116/63 08/05/17 21:45 O2 Sat by Pulse Oximetry 93 08/05/17 21:45 Temperature 99.5 F 08/05/17 21:45 Pulse Rate 79 08/06/17 03:01 Respiratory Rate 20 08/06/17 04:55 Blood Pressure 137/66 08/06/17 04:55 O2 Sat by Pulse Oximetry 95 08/06/17 03:01 Oxygen Delivery Oxygen Delivery Room Air Syncope - Lab Data Result diagrams: 08/05/17 22:09 08/05/17 22:09 Lab Results 08/05/17 08/05/17 08/05/17 Range/Units 22:09 22:09 22:09 WBC 9.8 (4.3-11.1) K/mcL RBC 4.49 (4.19-5.50) M/mcL Hgb 12.4 L (12.9-16.9) g/dL Hct 37.3 L (37.5-50.1) % MCV 83.1 (83.0-100.0) fL MCH 27.6 L (28.0-33.3) pg MCHC 33.2 (31.6-35.5) g/dL RDW 13.5 (11.5-14.5) % Plt Count 272 (140-400) K/mcL MPV 9.6 (9.4-12.4) fL Immature Gran % 0.3 (0-4) % Seg Neutrophils % 74.7 % Lymphocytes % 12.6 % Monocytes % 12.0 % Eosinophils % 0.2 % Basophils % 0.2 % Neutrophils # 7.4 (1.6-8.9) K/mcL Lymphocytes # 1.2 (0.6-4.6) K/mcL Monocytes # 1.2 (0.0-1.3) K/mcL Eosinophils # 0.0 (0.0-0.6) K/mcL Basophils # 0.0 (0.0-0.2) K/mcL PT 11.9 (9.4-12.1) Seconds INR 1.1 APTT 27.2 (26.0-36.0) Seconds Sodium 131 L (136-145) mEq/L Potassium 3.7 (3.5-5.1) mEq/L Chloride 95 L (98-107) mEq/L Carbon Dioxide 25 (23-29) mEq/L BUN 31 H (8-23) mg/dL Creatinine 1.01 (0.70-1.30) mg/dL Est GFR ( Amer) > 60 (> 60) Est GFR (Non-Af Amer) > 60 (> 60) BUN/Creatinine Ratio 31 H (6-26) Glucose 324 H (70-105) mg/dL Calculated Osmolality 291 (280-300) Calcium 9.2 (8.6-10.3) mg/dL Troponin I < 0.03 (< 0.04) ng/mL - Radiology Data Radiology results reviewed: Yes I reviewed the patient's radiology results. Chest X-Ray 08/05/17 21:56 IMPRESSION: No evidence of cardiac decompensation. Bibasilar atelectasis. D/ / Guillermo Khan / Guillermo Khan Interpreting Provider: Guillermo Khan - EKG Data EKG attestation: Yes I reviewed and interpreted this EKG. EKG shows normal: sinus rhythm, axis, intervals, QRS complexes Rate: normal Rhythm: NSR Interpretation: no acute changes Attestation Statement - Attestation Attestation: I, Alcides Marin MD, personally evaluated this patient and discussed their management with the midlevel provicer, PAC/GAS COMPRESSOR TURBINE OPERATOR. I reviewed the midlevel provider 's note and agree with the documented findings, medical decision making, and plan of care. 71-year-old male who is one day status post right total knee arthroplasty presents to the emergency department after he had a near syncopal episode at home. Patient states he was walking with his walker when he became weak and dizzy and lightheaded. He states everything started getting dark and he broke out in a sweat. He sat down on the toilet and everything went black. He states he did not completely lose consciousness. He was profusely diaphoretic. His tried to check his blood pressure and could not get a reading. After he started improving she got a systolic reading in the 60s. He denied any chest pain with the episode. He did have shortness of breath. No prior history of similar episodes. On examination patient is a well-developed well-nourished well-appearing elderly male in no acute distress. He is alert and oriented 3. There is no cyanosis or diaphoresis. Mucous membranes are moist. Neck is supple with no lymphadenopathy. No meningismus. Breath sounds are clear and equal bilaterally. Heart regular rate and rhythm. Abdomen soft and nontender with normal bowel sounds. No gross focal neurological deficits. Some mild diffuse swelling of the right knee with some mild diffuse tenderness. Early ecchymosis medially. No erythema or drainage. Labs reviewed. Chest x-ray shows bibasilar atelectasis. EKG shows a normal sinus rhythm, ventricular rate 79. No arrhythmia or ectopy noted. No acute ST segment elevation or depression. The hospitalist, Dr. Holguin, was consulted and accepted admission of the patient.
[2017-08-06] MEDS ORDERED: *HR* HYDROcodone/Acet 5/325 mg TABLET PO ONE (02:31)
[2017-08-06] MEDS ORDERED: Acetaminophen 325 MG TABLET PO PRN (03:50)
[2017-08-06] MEDS ORDERED: Naloxone 0.4 MG/ML INJ IVP PRN (03:50)
[2017-08-06] MEDS: 0.9 % Sodium Chloride 1,000 ML IVC SCH ×2 (05:49→16:08)
[2017-08-06 06:33] LABS: Troponin I < 0.03 ng/mL (< 0.04)
[2017-08-06 06:37] LABS: BUN/Creatinine Ratio 35 (6-26); Blood Urea Nitrogen 29 mg/dL (8-23); Calcium 9.2 mg/dL (8.6-10.3); Carbon Dioxide 27 mEq/L (23-29); Chloride 99 mEq/L (98-107); Glucose 244 mg/dL (70-105); Magnesium 1.8 mg/dL (1.6-2.6); Osmolality,Calculated 294 (280-300); Potassium 3.6 mEq/L (3.5-5.1); Sodium 135 mEq/L (136-145); eGFR For African Americans > 60 (> 60); eGFR For Non-African Americans > 60 (> 60)
--- NOTE | 2017-08-06 08:21 | Internal Med History&Physical ---
<Segundo Benitez - Last Filed: 08/06/17 10:22> Date of Encounter: 08/06/17 Time of Encounter: 09:00 Assessment and Plan (1) Near syncope Current visit: Yes Status: Acute Patient presented to the hospital after a near syncopal episode at home. -Was walking to his bedroom, became weak and diaphoretic. -Sat on toilet; experienced blurred vision. -Did not completely lose consciousness. -No prior episodes of syncope or dizziness. Plan: -Echocardiogram ordered Troponins trended (2) Status post total knee replacement, right Current visit: No Status: Acute Patient is status post total knee replacement on 08/04. TKR site is clean and dressed. No signs of infection. (3) HTN (hypertension) Current visit: No Status: Chronic Patient has a known history of hypertension. Qualifiers: Hypertension type: unspecified Qualified Code(s): I10 - Essential (primary ) hypertension (4) DMII (diabetes mellitus, type 2) Current visit: No Status: Chronic Patient presented with an elevated glucose. Insulin sliding scale. Qualifiers: Diabetes mellitus long term care pharmacist insulin use: unspecified long term care pharmacist insulin use status Diabetes mellitus complication status: with unspecified complications Qualified Code(s): E11.8 - Type 2 diabetes mellitus with unspecified complications (5) Obesity (BMI 30.0-34.9) Current visit: No Status: Chronic Internal Medicine - H&P: HPI Chief complaint: Near syncope Admitted From: Home History of present illness: 71-year-old male admitted for near syncopal episode at home. Status post TKR on 08/04. Was released to rehabilitation to start working on strength and endurance. Was able to complete exercise regimen. When he came home, was able to ambulate with his walker. We will he was walking to his bedroom, patient became weak, diaphoretic, and pale. Sat on toilet, ended up having to lie on the floor in the bathroom because he felt like he was going to fall. Also felt like he was going to pass out. Did not completely lose consciousness. Blurred vision. Blood pressure was checked; systolic was only 64. EMS arrived. Denied fever, chills, shortness of breath, dyspnea, chest pain, palpitations, edema, nausea, vomiting, diarrhea, increased pain. Upon arrival, O2 sat was 93. All other vital signs were within normal limits. EKG unremarkable. Chest x-ray showed bibasilar atelectasis. Laboratory analysis demonstrated a glucose in the upper 300s. TKR site was clean and dressed; no signs of infection. Patient was admitted for syncopal workup. No prior episodes of dizziness, vertigo, or syncope. Patient was seen and examined at bedside this morning. States that he is feeling tired this morning. Denies having any visual changes, dizziness, vertigo, or episodes of syncope. Patient denies ever having a syncopal episode in the past. Denies having any palpitations. States that he has been asymptomatic while in the hospital. He has no complaints at this time. Past Med Surg Social Fam HX - Past Medical History Medical history: GERD, hyperlipidemia, hypertension, kidney stones Psychiatric history: no psych history - Past Surgical History Surgical History: orthopedic, other - Social History Smoking Status: Never smoker Smokeless Tobacco Status: No Alcohol use: none Drug use: none - Family History Brother Living Status: Still Living Hx Family Endocrine Disorder: Yes (DM) Mother Adopted: No Family Member Ethnicity: Non- Living Status: Hx Family Cardiac Disorders: (CHF) Father Adopted: No Family Member Ethnicity: Non- Living Status: Hx Family Cardiac Disorders: Yes (CHF) Internal Medicine - H&P: Meds Albuterol Sulfate [Ventolin Hfa] 2 puff IH Q4H PRN 07/29/16 [History] Atorvastatin [Lipitor] 40 mg PO HS 07/29/16 [History] Duloxetine HCl [Cymbalta] 60 mg PO DAILY 07/29/16 [History] Dutasteride [Avodart] 0.5 mg PO DAILY 07/29/16 [History] Gabapentin [Neurontin] 600 mg PO BID 07/29/16 [History] Lisinopril/Hydrochlorothiazide [Lisinopril-Hctz 20-25 mg Tab] 1 tab PO DAILY 11/09 [History] Loratadine [Claritin] 10 mg PO DAILY 07/29/16 [History] Metformin HCl [Glucophage] 1,000 mg PO BID 07/29/16 [History] Montelukast [Singulair] 10 mg PO HS 07/29/16 [History] Omeprazole [PriLOSEC] 40 mg PO DAILY 07/29/16 [History] Aspirin Enteric Coated [Aspirin EC] 325 mg PO BID #20 tablet. 08/03/17 [Rx] OxyCODONE Immed Rel [Roxicodone 5 MG] 5 mg PO Q6HR PRN 7 Days #28 tablet [Rx] Diclofenac Sodium [Voltaren] 75 mg PO DAILY 08/05/17 [History] Jacy Root [Jacy] 500 mg PO DAILY 08/05/17 [History] 3 Allergy/AdvReac Type Severity Reaction Status Date / Time No Known Allergies Allergy Verified 08/05/17 21:45 All Systems PM: A 10-system review of systems was performed and is negative for pertinent findings except as documented above in the HPI. - Constitutional Constitutional: no chills, no fever(s), no night sweats - EENT Eyes: no change in vision, no discharge, no pain, no photophobia Ears: no ear discharge, no ear pain, no tinnitus Nose, mouth and throat: no dysphagia, no nasal discharge, no neck pain, no sore throat - Cardiovascular Cardiovascular ROS IM: no chest pain, no diaphoresis, no dyspnea, no lightheadedness, no palpitations, no syncope - Respiratory Respiratory: no cough, no dyspnea, no wheezing, no excessive phlegm production - Gastrointestinal Gastrointestinal: no abdominal pain, no diarrhea, no hematemesis, no hematochezia, no melena, no nausea, no vomiting - Musculoskeletal Musculoskeletal ROS IM: no numbness, no tingling - Integumentary Integumentary IM: no rash, no unusual bruising - Neurological Neurological ROS: no confusion, no convulsions, no focal weakness, no numbness, no tingling, no tremor(s) - Hematologic/Lymphatic Hematologic/Lymphatic: no easy bruising - Constitutional Vitals: Temp Pulse Resp BP Pulse Ox 98.8 F 77 16 145/69 94 08/06/17 07:27 08/06/17 07:27 08/06/17 07:27 08/06/17 07:27 08/06/17 07:27 - Head Head exam: Present: atraumatic, normocephalic - Eye Eye exam: Present: PERRL, conjuntiva pink, sclera anicteric Pupils: Present: PERRL - Neck Neck exam general surgery: Present: supple, trachea midline. Absent: lymphadenopathy - Respiratory Respiratory exam: Present: CTAB. Absent: accessory muscle use, rales, rhonchi, wheezes - Cardiovascular Cardiovascular exam: Present: RRR, +S1, +S2. Absent: diastolic murmur, gallop, rubs, systolic murmur - GI/Abdominal GI/Abdominal exam: Present: normal bowel sounds, soft, no peritoneal signs. Absent: distended, tenderness - Extremities Exam Extremities exam: Present: warm, radial pulses palpable and symmetrical. Absent : calf tenderness, cyanotic, pedal edema - Neurological Exam Neurological exam: Present: CN II-XII intact, oriented X3, no focal deficits. Absent: pronater drift, facial droop, speech deficit - Skin Skin exam: Present: dry, intact Internal Med - H&P Results - Labs CBC & Chem 7: 08/05/17 22:09 08/06/17 05:45 Labs: BMP 08/06/17 05:45 Sodium 135 L Potassium 3.6 Chloride 99 Carbon Dioxide 27 BUN 29 H Creatinine 0.84 Glucose 244 H Calcium 9.2 Cardiac Enzymes 08/06/17 Range/Units 05:45 Troponin I < 0.03 (< 0.04) ng/mL <Joby Rehman T - Last Filed: 08/06/17 16:35> Date of Encounter: 08/06/17 Internal Medicine - H&P: HPI History of present illness: Mr. Meredith is a 71 year old male All Systems PM: A 10-system review of systems was performed and is negative for pertinent findings except as documented above in the HPI. - Constitutional Vitals: Temp Pulse Resp BP Pulse Ox 98.8 F 77 16 145/69 94 08/06/17 07:27 08/06/17 07:27 08/06/17 07:27 08/06/17 07:27 08/06/17 07:27 Internal Med - H&P Results - Labs CBC & Chem 7: 08/05/17 22:09 08/06/17 05:45 Labs: BMP 08/06/17 05:45 Sodium 135 L Potassium 3.6 Chloride 99 Carbon Dioxide 27 BUN 29 H Creatinine 0.84 Glucose 244 H Calcium 9.2 Cardiac Enzymes 08/06/17 08/06/17 Range/Units 05:45 12:01 Troponin I < 0.03 < 0.03 (< 0.04) ng/mL - Attending Attestation I examined this patient and my medical decision-making was reviewed with the Resident Physician. I agree with the documented findings, disposition and treatment plan as described except to the extent set forth below. 71 M discharged from this facility after a R TKR on 08/05, represented with presyncope after having walked a few mins at home, blood pressure taken by said to be low, but vitals have been normal since arrival here Work up so far: CBC/Chem/CXR unremarkable. He was seen and evaluated at bedside and has no enw complains, he denies chest pain preceeding his symptoms, but did have some dizziness and SOB Physical exam is unremarkable: HR RRR, no murmurs, no neurologic deficits Labs and Imaging reviewed D-dimer done is elevated, Doppler RLE negative ECHO negative, follow VQ scan low suspicion for PE, check orthostats Stable to be transferred from the ICU if theres a need for a bed. Continue current management Rest as in the resident physician's documentation
[2017-08-06] MEDS: *HR* Metformin 500 MG TABLET PO SCH ×2 (08:40→20:18)
[2017-08-06] MEDS: Finasteride 5 MG TABLET PO SCH (08:41)
[2017-08-06] MEDS: Gabapentin 300 MG CAPSULE PO SCH ×2 (08:41→20:17)
[2017-08-06] MEDS: Loratadine 10 MG TABLET PO SCH (08:41)
[2017-08-06] MEDS: Aspirin Enteric Coated 325 MG Tablet PO SCH ×2 (08:41→20:18)
[2017-08-06] MEDS ORDERED: GINGER ROOT 500 MG PO SCH (09:00)
[2017-08-06] MEDS: Diclofenac Sodium 75 MG TABLET PO SCH (11:11)
--- NOTE | 2017-08-06 11:21 | Event Note ---
Date of Encounter: 08/06/17 Time of Encounter: 10:50 Patient seen at bedside - no family in room. Sleeping, easily awakened. Patient oriented to person and place - admits he is a bit confused with date/time. States went home on day of discharge and went to outpatient therapy same day. Per patient "I only walked on the stairs at therapy". He states that evening he was walking down the [place] at home and became very weak and states he had to sit down. He states he did "pass out" but he states he did not fall Denies any chest pain, shortness of breath, or dizziness at this time. He states he feels very weak and run down but denies vertigo or dizziness. Bilateral legs examined - both neurovascularly intact with minimal calf tenderness to palpation to the right calf. Operative right knee incision intact , clean and dry. Honeycomb intact. Right operative knee noted to have non- pitting edema and is erythematous though no suspicion of infection at this point. Patient to continue with care per medical team. Consider doppler order for concern of possible DVT/PE given patient's HPI. Requested ice be applied PRN to patient's right knee to help with pain and swelling control. Will continue to follow while patient inpatient.
--- NOTE | 2017-08-06 16:36 | Electrocardiograph Report ---
[place] [id number] Test Date: 2017-08-05 Pat Name: Sam Meredith Department: 104 Room: [facility] Gender: M [employer] Machine Tender: YAZAN : 1945 Requested By: Alcides Marin Order Number: [id number] Reading MD: Eulalio Moreau DO Measurements Intervals [place] Rate: 79 P: 24 PA: 161 QRS: -3 QRSD: 106 T: 79 QT: 368 QTc: 402 Interpretive Statements SINUS RHYTHM NONSPECIFIC T-WAVE ABNORMALITY Electronically Signed On 08-06-2017 16:35:09 EDT by Eulalio Moreau DO
[2017-08-06] MEDS: Sennosides/Docusate Sodium TABLET PO SCH (20:19)
[2017-08-07 01:59] LABS: Basophils % 0.3 %; Eosinophils # 0.3 K/mcL (0.0-0.6); Hematocrit 34.2 % (37.5-50.1); Immature Granulocytes % 0.2 % (0-4); Lymphocytes # 1.8 K/mcL (0.6-4.6); Lymphocytes % 19.5 %; Mean Corpuscular HGB Conc 32.2 g/dL (31.6-35.5); Mean Corpuscular Hemoglobin 27.7 pg (28.0-33.3); Mean Corpuscular Volume 86.1 fL (83.0-100.0); Mean Platelet Volume 9.5 fL (9.4-12.4); Monocytes # 1.1 K/mcL (0.0-1.3); Monocytes % 11.8 %; Platelet Count 235 K/mcL (140-400); Red Blood Count 3.97 M/mcL (4.19-5.50); Red Cell Distribution Width 13.6 % (11.5-14.5); Segmented Neutrophils % 65.2 %
[2017-08-07 02:14] LABS: BUN/Creatinine Ratio 27 (6-26); Blood Urea Nitrogen 21 mg/dL (8-23); Carbon Dioxide 30 mEq/L (23-29); Chloride 102 mEq/L (98-107); Glucose 183 mg/dL (70-105); Osmolality,Calculated 294 (280-300); Potassium 4.1 mEq/L (3.5-5.1); Sodium 138 mEq/L (136-145); eGFR For African Americans > 60 (> 60); eGFR For Non-African Americans > 60 (> 60)
[2017-08-07] MEDS: *HR* Metformin 500 MG TABLET PO SCH ×2 (07:47→20:26)
[2017-08-07] MEDS: traMADol 50 MG TABLET PO PRN ×2 (07:47→20:27)
[2017-08-07] MEDS: Diclofenac Sodium 75 MG TABLET PO SCH (07:48)
[2017-08-07] MEDS: Loratadine 10 MG TABLET PO SCH (07:48)
[2017-08-07] MEDS: Aspirin Enteric Coated 325 MG Tablet PO SCH ×2 (07:48→20:26)
[2017-08-07] MEDS: Finasteride 5 MG TABLET PO SCH (07:48)
[2017-08-07] MEDS: Sennosides/Docusate Sodium TABLET PO SCH ×2 (07:48→20:26)
[2017-08-07] MEDS: Gabapentin 300 MG CAPSULE PO SCH ×2 (07:48→20:26)
--- NOTE | 2017-08-07 13:33 | Discharge Summary ---
<Segundo Benitez - Last Filed: 08/07/17 13:31> Date of Encounter: 08/07/17 Time of Encounter: 08:15 - Discharge Diagnosis (1) Near syncope Priority: Primary Status: Acute (2) Status post total knee replacement, right Priority: Secondary Status: Acute (3) HTN (hypertension) Priority: Secondary Status: Chronic Qualifiers: Hypertension type: unspecified Qualified Code(s): I10 - Essential (primary ) hypertension (4) DMII (diabetes mellitus, type 2) Priority: Secondary Status: Chronic Qualifiers: Diabetes mellitus correction insulin use: unspecified correction insulin use status Diabetes mellitus complication status: with unspecified complications Qualified Code(s): E11.8 - Type 2 diabetes mellitus with unspecified complications (5) Obesity (BMI 30.0-34.9) Priority: Secondary Status: Chronic Hospital course: Mr. Meredith is a 71-year-old male admitted for near syncopal episode at home. Status post TKR on 08/04. Was released to rehabilitation to start working on strength and endurance. Was able to complete exercise regimen. When he came home, was able to ambulate with his walker. We will he was walking to his bedroom, patient became weak, diaphoretic, and pale. Sat on toilet, ended up having to lie on the floor in the bathroom because he felt like he was going to fall. Also felt like he was going to pass out. Did not completely lose consciousness. Blurred vision. Blood pressure was checked; systolic was only 64. EMS arrived. Denied fever, chills, shortness of breath, dyspnea, chest pain , palpitations, edema, nausea, vomiting, diarrhea, increased pain. Upon arrival, O2 sat was 93. All other vital signs were within normal limits. EKG unremarkable. Chest x-ray showed bibasilar atelectasis. Laboratory analysis demonstrated a glucose in the upper 300s. TKR site was clean and dressed; no signs of infection. Patient was admitted for syncopal workup. No prior episodes of dizziness, vertigo, or syncope. During his stay in the hospital, patient did not have any symptoms of dizziness , lightheadedness, visual disturbances, or 60. He was noted to have an elevated d-dimer. Because of this, ordered pulmonary vascular studies to rule out the possibility of pulmonary embolism. It demonstrated a low probability of PE. Echocardiogram was unremarkable. Patient was seen and examined at bedside on the morning of discharge. Denies having any visual changes, dizziness, vertigo, or episodes of syncope. Patient denies ever having a syncopal episode in the past. Denies having any palpitations. States that he has been asymptomatic while in the hospital. He has no complaints at this time. Patient will be evaluated by PT OT; discharge conditional based on their recommendations. - Time Spent with Patient Total time spent providing and/or coordinating discharge services: Greater than 30 minutes (41 minutes) - Discharge Medications Home Medications: Albuterol Sulfate [Ventolin Hfa] 2 puff IH Q4H PRN 07/29/16 [History] Atorvastatin [Lipitor] 40 mg PO HS 07/29/16 [History] Duloxetine HCl [Cymbalta] 60 mg PO DAILY 07/29/16 [History] Dutasteride [Avodart] 0.5 mg PO DAILY 07/29/16 [History] Gabapentin [Neurontin] 600 mg PO BID 07/29/16 [History] Lisinopril/Hydrochlorothiazide [Lisinopril-Hctz 20-25 mg Tab] 1 tab PO DAILY 11/09 [History] Loratadine [Claritin] 10 mg PO DAILY 07/29/16 [History] Metformin HCl [Glucophage] 1,000 mg PO BID 07/29/16 [History] Montelukast [Singulair] 10 mg PO HS 07/29/16 [History] Omeprazole [PriLOSEC] 40 mg PO DAILY 07/29/16 [History] Aspirin Enteric Coated [Aspirin EC] 325 mg PO BID #20 tablet. 08/03/17 [Rx] OxyCODONE Immed Rel [Roxicodone 5 MG] 5 mg PO Q6HR PRN 7 Days #28 tablet [Rx] Diclofenac Sodium [Voltaren] 75 mg PO DAILY 08/05/17 [History] Jacy Root [Jacy] 500 mg PO DAILY 08/05/17 [History] Allergies/Adverse Reactions: 3 Allergy/AdvReac Type Severity Reaction Status Date / Time No Known Allergies Allergy Verified 08/05/17 21:45 Date of admission: 08/06/17 04:02 Primary care physician: Sue Nagel Consults: 08/07/17 09:40 Consult to Physical Therapy [CONS] Routine Comment: Evaluate, develop and implement POC Reason for Consult: Discharge planning Does patient have active BEDREST order?: No Is patient medically & hemodynamically stable?: Yes OT [Consult to Occupational Therapy] [CONS] Routine Comment: Evaluate, develop and implement POC Reason for Consult: Discharge planning Does patient have active BEDREST order?: No Is patient medically & hemodynamically stable?: Yes Discharging clinician: Segundo Benitez Anticipated date of discharge: 08/07/17 - Constitutional Vitals: Temp Pulse Resp BP Pulse Ox 98.3 F 80 17 124/75 93 08/07/17 12:10 08/07/17 11:59 08/07/17 11:59 08/07/17 11:59 08/07/17 05:45 General appearance: Present: A&O X 3, answers questions appropriately - Head Head exam: Present: atraumatic, normocephalic - Eye Eye exam: Present: PERRL, conjuntiva pink, sclera anicteric Pupils: Present: PERRL - Neck Neck exam general surgery: Present: supple, trachea midline. Absent: lymphadenopathy - Respiratory Respiratory exam: Present: CTAB. Absent: accessory muscle use, rales, rhonchi, wheezes - Cardiovascular Cardiovascular exam: Present: RRR, +S1, +S2. Absent: diastolic murmur, gallop, rubs, systolic murmur - GI/Abdominal GI/Abdominal exam: Present: normal bowel sounds, soft, no peritoneal signs. Absent: distended, tenderness - Extremities Exam Extremities exam: Present: warm. Absent: calf tenderness, cyanotic, pedal edema - Neurological Exam Neurological exam: Present: CN II-XII intact, oriented X3, no focal deficits. Absent: pronater drift, facial droop, speech deficit - Skin Skin exam: Present: dry, intact - Patient Status Disposition: Home, Self-Care Condition: Good Overall status at discharge: patient is progressing back to baseline - Discharge Instructions Follow Up With: Patricia Melendrez DO [Primary Care Provider] - - Diet and Activity Activity: increase activity as tolerated Diet: advance to your usual diet <Joby Rehman - Last Filed: 08/07/17 14:43> Date of Encounter: 08/07/17 Hospital course: Mr. Meredith is a 71 year old male - Time Spent with Patient Total time spent providing and/or coordinating discharge services: Date of admission: 08/06/17 04:02 Primary care physician: Sue Nagel Consults: 08/07/17 09:40 Consult to Physical Therapy [CONS] Routine Comment: Evaluate, develop and implement POC Reason for Consult: Discharge planning Does patient have active BEDREST order?: No Is patient medically & hemodynamically stable?: Yes OT [Consult to Occupational Therapy] [CONS] Routine Comment: Evaluate, develop and implement POC Reason for Consult: Discharge planning Does patient have active BEDREST order?: No Is patient medically & hemodynamically stable?: Yes - Constitutional Vitals: Temp Pulse Resp BP Pulse Ox 98.3 F 80 17 124/75 93 08/07/17 12:10 08/07/17 11:59 08/07/17 11:59 08/07/17 11:59 08/07/17 05:45 - Attending Attestation I examined this patient and my medical decision-making was reviewed with the Resident Physician. I agree with the documented findings, disposition and treatment plan as described except to the extent set forth below. 71 M discharged from this facility after a R TKR on 08/05, represented with presyncope after having walked a few mins at home, blood pressure taken by said to be low, but vitals have been normal since arrival here Work up so far: CBC/Chem/CXR unremarkable. ECHO negative, DVT and PE ruled out No new complains on eval today Physical exam is unremarkable Hemodynamically and medically stable PTOT eval is pending Safe to discharge home or home health/SNF after PTOT eval Rest of details as in the resident physician's documentation
--- NOTE | 2017-08-07 16:21 | Orthopedics Progress Note ---
Date of Encounter: 08/07/17 Time of Encounter: 16:17 - Assessment and Plan (1) Status post total knee replacement, right Current Visit: No Status: Acute POD#4 Right TKR 08/04/17 Patient was doing well s/p TKR, discharged on Friday to home with outpatient PT. Patient was readmitted on 08/05/17 after a near-syncopal episode at home, evaluated and stable per medical team. Right knee - appears healthy, no s/s of infection. Dressing c/d/i. ROM limited. Swelling minimal, NV intact. Plan to see PT/OT TODAY, and eval for home versus ECF placement. I called PT/OT at 1300 and at 1630 to verify they will see patient today for eval. F/up with Ortho as scheduled next week. Subjective Principal diagnosis: Right TKR - 08/04/17 Interval history: POD#4 Right TKR 08/04/17 Patient was doing well s/p TKR, discharged on Friday to home with outpatient PT. Patient was readmitted on 08/05/17 after a near-syncopal episode at home, evaluated and stable per medical team. Right knee - appears healthy, no s/s of infection. Dressing c/d/i. ROM limited. Swelling minimal, NV intact. Plan to see PT/OT TODAY, and eval for home versus ECF placement. I called PT/OT at 1300 and at 1630 to verify they will see patient today for eval. F/up with Ortho as scheduled next week. Objective Vital signs: Vital Signs Temp Pulse Pulse Pulse Pulse Resp BP 08/07/17 12:10 98.3 F 08/07/17 11:59 80 17 124/75 08/07/17 11:47 80 88 91 08/07/17 10:00 78 18 126/73 08/07/17 08:54 98.4 F 08/07/17 05:45 75 18 08/07/17 04:00 82 16 142/72 08/07/17 03:28 98.5 F 08/07/17 02:00 79 18 08/07/17 00:00 98.5 F 78 16 135/73 08/06/17 22:00 08/06/17 20:00 79 20 147/81 08/06/17 19:46 98.5 F 08/06/17 17:00 98.3 F 76 16 152/73 BP BP BP Pulse Ox 08/07/17 12:10 08/07/17 11:59 08/07/17 11:47 124/75 116/62 103/67 08/07/17 10:00 08/07/17 08:54 08/07/17 05:45 93 08/07/17 04:00 96 08/07/17 03:28 08/07/17 02:00 95 08/07/17 00:00 93 08/06/17 22:00 96 08/06/17 20:00 97 08/06/17 19:46 08/06/17 17:00 Intake and Output 08/07/17 08/07/17 08/07/17 07:59 15:59 23:59 Intake Total 1000 / 1000 240 / 240 Output Total 975 / 975 Balance 25 / 25 240 / 240 Intake: IV Fluids 1000 / 1000 0.9 % Sodium Chloride 1,000 ML 1000 / 1000 @ 100 mls/hr IVC .Q10H [facility] Rx#: [id number] Oral 240 / 240 Output: Urine 975 / 975 Other: Meal Lunch Percent of Meal Consumed 100% Weight 101.4 kg Blood Glucose* 151 Patient Weight 08/07/17 23:59 Weight 101.4 kg - Labs CBC & BMP: 08/07/17 01:37 08/07/17 01:37 Labs: Abnormal lab results RBC 3.97 M/mcL (4.19-5.50) L 08/07/17 01:37 Hgb 11.0 g/dL (12.9-16.9) L 08/07/17 01:37 Hct 34.2 % (37.5-50.1) L 08/07/17 01:37 MCH 27.7 pg (28.0-33.3) L 08/07/17 01:37 D-Dimer 2282 ng/mLFEU (0-500) H 08/06/17 12:01 Carbon Dioxide 30 mEq/L (23-29) H 08/07/17 01:37 BUN/Creatinine Ratio 27 (6-26) H 08/07/17 01:37 Glucose 183 mg/dL (70-105) H 08/07/17 01:37 POC Glucose 220 (58-89) H 08/06/17 19:43 Consult Discharge Plan - Plan Referrals: Patricia Melendrez DO [Primary Care Provider] -
[2017-08-07] MEDS ORDERED: 0.9 % Sodium Chloride 500 ML IVC ONE (19:03)
[2017-08-08] MEDS: traMADol 50 MG TABLET PO PRN (04:38)
[2017-08-08 05:44] LABS: Basophils % 0.2 %; Eosinophils # 0.4 K/mcL (0.0-0.6); Eosinophils % 4.7 %; Hematocrit 31.6 % (37.5-50.1); Hemoglobin 10.6 g/dL (12.9-16.9); Immature Granulocytes % 0.3 % (0-4); Lymphocytes # 1.9 K/mcL (0.6-4.6); Lymphocytes % 21.4 %; Mean Corpuscular HGB Conc 33.5 g/dL (31.6-35.5); Mean Corpuscular Hemoglobin 28.3 pg (28.0-33.3); Mean Corpuscular Volume 84.3 fL (83.0-100.0); Mean Platelet Volume 10.1 fL (9.4-12.4); Monocytes # 0.8 K/mcL (0.0-1.3); Monocytes % 9.6 %; Neutrophils # 5.6 K/mcL (1.6-8.9); Platelet Count 250 K/mcL (140-400); Red Blood Count 3.75 M/mcL (4.19-5.50); Red Cell Distribution Width 13.5 % (11.5-14.5); Segmented Neutrophils % 63.8 %
[2017-08-08 05:58] LABS: BUN/Creatinine Ratio 28 (6-26); Blood Urea Nitrogen 19 mg/dL (8-23); Calcium 8.8 mg/dL (8.6-10.3); Carbon Dioxide 27 mEq/L (23-29); Chloride 102 mEq/L (98-107); Glucose 164 mg/dL (70-105); Osmolality,Calculated 290 (280-300); Potassium 3.6 mEq/L (3.5-5.1); Sodium 137 mEq/L (136-145); eGFR For African Americans > 60 (> 60); eGFR For Non-African Americans > 60 (> 60)
[2017-08-08] MEDS: Sennosides/Docusate Sodium TABLET PO SCH (08:11)
[2017-08-08] MEDS: Aspirin Enteric Coated 325 MG Tablet PO SCH (08:12)
[2017-08-08] MEDS: Loratadine 10 MG TABLET PO SCH (08:12)
[2017-08-08] MEDS: *HR* Metformin 500 MG TABLET PO SCH (08:12)
[2017-08-08] MEDS: Diclofenac Sodium 75 MG TABLET PO SCH (08:12)
[2017-08-08] MEDS: Gabapentin 300 MG CAPSULE PO SCH (08:12)
[2017-08-08] MEDS: Finasteride 5 MG TABLET PO SCH (08:13)
--- NOTE | 2017-08-08 08:27 | Orthopedics Progress Note ---
Date of Encounter: 08/08/17 Time of Encounter: 08:26 Subjective Principal diagnosis: Right TKR - 08/04/17 Interval history: Patient was seen this morning doing well without complaints. Afebrile vital signs stable. Operative extremity: Neurovascularly intact Dressing clean dry and intact Calves nontender Assessment and plan: Okay for discharge Objective Vital signs: Vital Signs Temp Pulse Pulse Pulse Pulse Resp BP 08/08/17 07:07 98.3 F 79 20 114/63 08/08/17 04:43 99.5 F 78 16 131/70 08/07/17 12:10 98.3 F 08/07/17 11:59 80 17 124/75 08/07/17 11:47 80 88 91 08/07/17 10:00 78 18 126/73 08/07/17 08:54 98.4 F BP BP BP Pulse Ox 08/08/17 07:07 92 08/08/17 04:43 90 08/07/17 12:10 08/07/17 11:59 08/07/17 11:47 124/75 116/62 103/67 08/07/17 10:00 08/07/17 08:54 Intake and Output 08/07/17 08/08/17 08/08/17 23:59 07:59 15:59 Intake Total 100 / 100 Output Total 600 / 600 1000 / 1000 Balance -500 / -500 -1000 / -1000 Intake: Oral 100 / 100 Output: Urine 600 / 600 1000 / 1000 Other: Blood Glucose* 186 173 - Labs CBC & BMP: 08/08/17 04:36 08/08/17 04:36 Labs: Abnormal lab results RBC 3.75 M/mcL (4.19-5.50) L 08/08/17 04:36 Hgb 10.6 g/dL (12.9-16.9) L 08/08/17 04:36 Hct 31.6 % (37.5-50.1) L 08/08/17 04:36 D-Dimer 2282 ng/mLFEU (0-500) H 08/06/17 12:01 Creatinine 0.68 mg/dL (0.70-1.30) L 08/08/17 04:36 BUN/Creatinine Ratio 28 (6-26) H 08/08/17 04:36 Glucose 164 mg/dL (70-105) H 08/08/17 04:36 POC Glucose 173 (58-89) H 08/08/17 07:11 Consult Discharge Plan - Plan Referrals: Patricia Melendrez DO [Primary Care Provider] -
--- NOTE | 2017-08-08 08:41 | Internal Med Progress Note ---
Date of Encounter: 08/08/17 Time of Encounter: 09:30 - Assessment and plan (1) Near syncope Current Visit: Yes Status: Acute (2) Status post total knee replacement, right Current Visit: No Status: Acute (3) HTN (hypertension) Current Visit: No Status: Chronic Qualifiers: Hypertension type: unspecified Qualified Code(s): I10 - Essential (primary ) hypertension (4) DMII (diabetes mellitus, type 2) Current Visit: No Status: Chronic Qualifiers: Diabetes mellitus detention insulin use: unspecified meterman insulin use status Diabetes mellitus complication status: with unspecified complications Qualified Code(s): E11.8 - Type 2 diabetes mellitus with unspecified complications (5) Obesity (BMI 30.0-34.9) Current Visit: No Status: Chronic - Constitutional Vitals: Temp Pulse Resp BP Pulse Ox 98.3 F 79 20 114/63 92 08/08/17 07:07 08/08/17 07:07 08/08/17 07:07 08/08/17 07:07 08/08/17 07:07 General appearance: Present: A&O X 3, answers questions appropriately Internal Medicine: Result - Labs CBC & Chem 7: 08/08/17 04:36 08/08/17 04:36 Labs: Short CBC 08/08/17 Range/Units 04:36 WBC 8.8 (4.3-11.1) K/mcL Hgb 10.6 L (12.9-16.9) g/dL Hct 31.6 L (37.5-50.1) % Plt Count 250 (140-400) K/mcL Neutrophils # 5.6 (1.6-8.9) K/mcL BMP 08/08/17 04:36 Sodium 137 Potassium 3.6 Chloride 102 Carbon Dioxide 27 BUN 19 Creatinine 0.68 L Glucose 164 H Calcium 8.8 - ABG Interpretation ABG results: PT/INR, D-dimer PT 11.9 Seconds (9.4-12.1) 08/05/17 22:09 D-Dimer 2282 ng/mLFEU (0-500) H 08/06/17 12:01 Consult Discharge Plan - Plan Referrals: Patricia Melendrez DO [Primary Care Provider] -
--- NOTE | 2017-08-08 11:19 | Event Note ---
<Segundo Benitez - Last Filed: 08/08/17 11:17> Date of Encounter: 08/08/17 Time of Encounter: 11:17 Patient was seen and examined at bedside this morning. Plan is to discharge patient today. He states that he is feeling well. Denies having any dizziness , lightheadedness, palpitations, chest pain, visual disturbances, or syncope. Site of total knee replacement visualized; area appears to be healing well. No discharge or redness noted. No abnormal findings on physical examination. Patient follow-up with [facility] in the outpatient setting. <Joby Rehman - Last Filed: 08/08/17 12:40> Date of Encounter: 08/08/17 Patient was seen and evaluated at the bedside He was admitted to observation for pre-syncope following a TKR, his syncope work up was negative He is seen and evaluated at the bedside this mrn, no new complains, orthostats were positive but improved with IVF hydration He is scheduled for out-patient therapy , encouraged to keep Follow up with his PCP and ortho Plan of care discussed with and patient at the bedside who verbalized understanding
[2017-08-08 12:40] VITALS: BP 122/68
== END 2017-08-08 14:01 | disposition home or self-care (01) ==
LOC: ICNU 20:43 → EMEROO 20:43 → SUATTDRO 08-06 04:02 → ICNU 08-06 05:24 → 3NENU 08-07 15:30
PROVIDERS: ADMIT Internal Medicine Cardiovascular Disease; ATTEND Internal Medicine